=== PATIENT | female | born 1985 | race Two or more races ===

== ENCOUNTER 2024-08-21 16:40 | Inpatient (IN) | payer MEDICAID, SELFPAY ==
[2024-08-21 17:14] VITALS: BP 167/84; PULSE 75; RESP 18; TEMP 36.9; O2SAT 97; BMI 35.9
--- NOTE | 2024-08-21 17:35 | PD.EDRME ---
Rapid Medical Screening Exam RME Arrival date/time: 08/21/24 16:40 This is a 39-year-old female that comes in with complaints of nausea, vomiting and abdominal pain that started today. I have greeted and performed a focused initial assessment of this patient. Initial appropriate labs ordered at this time. A comprehensive ED assessment and evaluation of the patient and analysis of all test and completion of medical decision making process will be conducted by additional ED provider. Chief Complaint: Abdominal Pain Time Seen by Provider: 08/21/24 16:43 Vital signs: Vital Signs Temperature 98.5 F 08/21/24 17:14 Pulse Rate 75 08/21/24 17:14 Respiratory Rate 18 08/21/24 17:14 Blood Pressure 167/84 H 08/21/24 17:14 Pulse Oximetry (%) 97 08/21/24 17:14 Oxygen Delivery Method Room Air 08/21/24 17:14
[2024-08-21] MEDS: ONDANSETRON ODT 4 MG TABRAP PO (17:42)
[2024-08-21 18:20] LABS: Basophils # (Auto) 0.1 Thou/mm3 (0.0-0.2); Basophils % (Auto) 1 % (0-2.5); Eosinophils # (Auto) 0.3 Thou/mm3 (0.0-0.5); Eosinophils % (Auto) 4 % (0-10); Hematocrit 35.2 % (36.0-46.0); Hemoglobin 11.7 g/dL (12.0-16.0); Immature Granulocytes % (Auto) 0 % (0-0); Immature Granulocytes Auto 0.01 Thou/mm3 (0.00-0.00); Lymphocytes # (Auto) 1.8 Thou/mm3 (1.0-4.8); Lymphocytes % (Auto) 21 % (10-50); Mean Corpuscular HGB Conc 33.2 g/dl (31.0-37.0); Mean Corpuscular Hemoglobin 28.9 pg (25.0-35.0); Mean Corpuscular Volume 87 fL (80-100); Monocytes # (Auto) 0.8 Thou/mm3 (0.0-0.8); Monocytes % (Auto) 9 % (0-12); Neutrophils # (Auto) 5.8 Thou/mm3 (1.8-7.7); Neutrophils % (Auto) 66 % (37-80); Nucleated Red Blood Cell % 0 /100 WBC (0); Platelet Count 270 Thou/mm3 (140-440); RDW Standard Deviation 51.6 fL (36.4-46.3); Red Blood Count 4.05 Miln/mm3 (4.00-5.20); White Blood Count 8.7 Thou/mm3 (3.6-11.0)
[2024-08-21 18:26] LABS: Collection Type, Urine Voided
[2024-08-21 18:36] LABS: Alanine Aminotransferase 41 U/L (10-49); Albumin, Serum 4.6 gm/dL (3.5-5.0); Albumin/Globulin Ratio 1.5 (1.2-2.2); Alkaline Phosphatase 87 U/L (46-116); Anion Gap 9 (7-16); Aspartate Amino Transferase 39 U/L (0-34); BUN/Creatinine Ratio 17 Ratio (12-20); Bilirubin,Total 0.9 mg/dL (0.3-1.2); Blood Urea Nitrogen 10 mg/dL (9-23); Calcium 9.2 mg/dL (8.3-10.6); Calcium (Corrected) 9.2 mg/dL (8.5-10.1); Carbon Dioxide 22.3 mMol/L (20.0-31.0); Chloride 105 mMol/L (98-107); Creatinine (Component) 0.6 mg/dL (0.6-1.3); Estimated Creatinine Clearance 129.3 mL/min (>60); Glucose 106 mg/dL (74-106); Lipase 40 U/L (12-53); Osmolality,Calculated 270 (275-295); Potassium 3.7 mMol/L (3.4-5.1); Sodium 136 mMol/L (136-145); Total Protein 7.6 gm/dL (5.7-8.2); eGFR > 60 See Note
[2024-08-21 18:36] LABS: HCG Qualitative,Urine Negative
[2024-08-21 18:43] LABS: Bilirubin,Urine Negative (Negative); Blood,Urine Negative (Negative); Clarity,Urine Clear (Clear/Hazy); Color,Urine Yellow (Lt Yel-Yel); Glucose, Urine Negative (Negative); Ketones,Urine 2+ (Negative); Leukocyte Esterase,Urine Positive (Negative); Nitrite,Urine Negative (Negative); PH,Urine 5.5 (5.0-7.0); Protein,Urine Trace (Neg - Trace); RBC,Urine 6 /hpf (0-3); Specific Gravity,Urine 1.035 (1.001-1.035); Squamous Epithelial Cell,Urine 4 /hpf (0-5); Urobilinogen,Urine Negative mg/dL (0.0-1.0); WBC,Urine 34 /hpf (0-5)
[2024-08-21 18:45] LABS: Culture Indicated,Urine Yes
[2024-08-21 19:53] VITALS: BP 141/72; PULSE 84; RESP 17; TEMP 37.1; O2SAT 99
--- NOTE | 2024-08-21 20:08 | EDNOTE_ITS ---
<Statement entered by Stephanie Pichardo MD - 08/22/24 04:25> As co-signing physician, I was present and available for consult prn. I concur with the plan and care as documented by the midlevel provider. ED Abdominal Pain RME/HPI General Chief Complaint: Abdominal Pain Stated complaint: ABD PAIN/BACK PAIN/HTN Time seen by provider: 08/21/24 16:43 Arrival date/time: 08/21/24 16:40 RME / HPI RME / HPI narrative: 39-year-old female patient with significant medical history of hypertension, came in for evaluation regarding epigastric pain onset of symptoms since 3 to 4 hours prior to ER visit described as crampy severity moderate associated with nausea vomiting. No fever noted denies any other complaints. Denies any abdominal surgery. Related Data Previous Rx's ?Medication ?Instructions ?Recorded Docusate Sodium 100 mg PO BID #60 caps 04/13 ibuprofen 400 mg tablet 800 mg (2 x 400 mg) PO Q8HR PRN 04/13/13 ABDOMINAL CRAMPING #30 caps Allergies Allergy/AdvReac Type Severity Reaction Status Date / Time No Known Allergies Allergy Verified 08/21/24 16:42 Review of Systems Review of Systems Narrative Review of Systems: Review of system reviewed and within normal limits except mentioned in HPI ED Exam Narrative Physical exam: VITAL SIGNS: Reviewed. GENERAL APPEARANCE: Alert and interactive, follows commands, no acute distress, HEAD AND FACE: Non-traumatic. ENT: PERRL, pink conjunctivitis, eyelid no trauma, Mucous membrane moist. NECK: Supple, nontender, no nuchal rigidity. CHEST: No tenderness, no crepitus, no paradoxical movement, no retractions. LUNGS: Clear, well ventilated, symmetric, no rales, no wheezing, no ronchi, no stridor, good breath sounds bilaterally. HEART: Regular rate, regular rhythm, no murmur, no gallops. ABDOMEN: Soft, positive bowel sounds, nondistended, no guarding, epigastric tenderness, no rebound, no masses, RECTAL: Deferred. GENITAL: Deferred. NEUROLOGICAL: Gross motor function intact sensory function intact, Appropriate for age. MUSCULOSKELETAL: low back nontender, full range of motion. EXTREMITIES: Nontender, full range of motion. SKIN: Color pink, dry, no rash, no lacerations, no abrasions, no contusions. LYMPHATICS: Deferred. Course Quality Measures none Orders Category Date Time Status COVID-19 Screening Questionnaire NOW Care 08/21/24 21:41 Active Decision to Admit X1 Care 08/21/24 21:41 Active NPO after Midnight ONCE Care 08/21/24 21:41 Active Diet NPO after Midnight Diet 08/22/24 00:01 Active US gall bladder Stat Exams 08/21/24 20:17 Completed CBC Stat Lab 08/21/24 18:09 Completed Comprehensive Metabolic Panel Stat Lab 08/21/24 18:09 Completed HCG Qualitative,Urine Stat Lab 08/21/24 18:20 Completed Lipase Stat Lab 08/21/24 18:09 Completed Urinalysis, C/S if Indicated Stat Lab 08/21/24 18:20 Completed Urine Culture Stat Lab 08/21/24 18:20 Received Cefoxitin [Mefoxin] 2 gm Med 08/21/24 21:36 Active SODIUM CHLORIDE 0.9% (Popper) [Ns 0.9% (P)] 50 ml IV X1 Ketorolac Inj [Toradol Inj] Med 08/21/24 20:08 Discontinued 30 mg IM X1 ONE Morphine Inj Med 08/21/24 21:36 Discontinued 4 mg IVP X1 ONE Ondansetron Odt [Zofran Odt] Med 08/21/24 17:35 Discontinued 4 mg PO X1 ONE Sodium Chloride 0.9% 1000 ml [Ns] 1,000 ml Med 08/21/24 21:37 Active IV 999 mls/hr Vital Signs Vital signs: Vital Signs Temperature 98.5 F 08/21/24 17:14 Pulse Rate 75 08/21/24 17:14 Respiratory Rate 18 08/21/24 17:14 Blood Pressure 167/84 H 08/21/24 17:14 Pulse Oximetry (%) 97 08/21/24 17:14 Oxygen Delivery Method Room Air 08/21/24 17:14 Abdominal Pain MDM MDM Narrative MDM Narrative:: 39-year-old female patient with significant medical history of hypertension, came in for evaluation regarding epigastric pain onset of symptoms since 3 to 4 hours prior to ER visit described as crampy severity moderate associated with nausea vomiting. No fever noted denies any other complaints. Denies any abdominal surgery. Ultrasound of the gallbladder showed acute calculus cholecystitis. Laboratory workup came back unremarkable total bili is normal Patient received IV fluids, morphine, Toradol, Zofran, and IV cefoxitin. Spoke with general surgeon on-call, who told me to put the patient on n.p.o. and asked the hospitalist admit thank you DrMario Patient data External records reviewed:: None Clinical information provided by:: patient Social determinants that could affect healthcare access:: none Patient has the following chronic illnesses:: Hypertension How is presenting disease/condition affected by chronic disease/condition?: uneffected by Evaluation data The following diagnostics were reviewed and interpreted by me:: lab results and radiology exam(s) Lab and/or radiology exams considered but not ordered:: None Interpretation Summary: See results MDM Medications / Prescriptions Medications or Prescriptions considered but not ordered:: None Medication administrations:: Medication Administration History Cefoxitin Sodium 2 gm/ Sodium (Chloride) 50 mls @ 100 mls/hr IV X1 ONE Stop: 08/21/24 22:05 Sodium Chloride (Ns) 1,000 mls @ 999 mls/hr IV .Q1H1M ONE Stop: 08/21/24 22:37 Discontinued Medications Ketorolac Tromethamine (Ketorolac Inj 60 Mg/2 Ml Vial) 30 mg IM X1 ONE Stop: 08/21/24 20:09 Last Admin: 08/21/24 20:18 Dose: 30 mg Documented By: OA Morphine Sulfate (Morphine Sulf Inj 10 Mg/Ml Vial) 4 mg IVP X1 ONE Stop: 08/21/24 21:37 Ondansetron HCl (Ondansetron Odt 4 Mg Tabrap) 4 mg PO X1 ONE; Protocol Stop: 08/21/24 17:36 Last Admin: 08/21/24 17:42 Dose: 4 mg Documented By: OA Morphine Zofran Toradol cefoxitin and IV fluid Consultations Consultation(s) initiated? (list below): Yes Consultation #1 (Physician, Specialty, Details): Spoke with Dr. Harrell, general surgeon on-call, discussed the case and accepted the consult Diagnosis Differential diagnosis abdominal pain: abdominal pain and pancreatitis Most likely diagnosis given after review of the tests above:: Acute calculus cholecystitis Admission Indicated Admission indicated?: indicated Admission Request Was there a request for admission?: Yes Admission Attestation Admission request attestation: Discussed case with [Dr. Castro] from Hospitalist service regarding admission. Discussed patients ED course, exam findings, labs, and radiology results. The Hospitalist [agrees] to accept the patient for admission. Disposition Plan Disposition Plan: Admit Discharge Plan Plan Patient Disposition: Admit Acute Care w/in Hospital Prescriptions/Referrals Prescriptions/Med Rec: No Action ibuprofen 400 MG tablet 800 mg PO Q8HR PRN (Reason: ABDOMINAL CRAMPING) Qty: 30 0RF Docusate Sodium 100 MG tablet 100 mg PO BID Qty: 60 0RF Referrals: No Primary/Family,Physician [Primary Care Provider] - In 1 week Problem List Clinical Impression: Acute calculous cholecystitis, HTN (hypertension) Patient/Caregiver Discharge Instructions Print Language: Turkish Stand Alone Forms: Dianne Award Info., Patient Portal Info Letter
--- NOTE | 2024-08-21 20:17 | XR_ITS ---
Examination: Abdomen sonogram, Limited Date and time of exam: August 21, 2024, 2032 hours INDICATIONS: Onset of epigastric pain nausea vomiting beginning today Technique: Real-time echavarria scale transabdominal sonographic images of the upper abdomen obtained. Findings: Gallbladder sludge, gallstones, the largest gallstone 29 mm Gallbladder wall 0.38 cm with mild edema Common bile duct 0.3 cm Pancreatic head 2.8 cm Liver 13.4 cm fatty infiltration lobular contour Normal hepatopedal portal venous flow Patent IVC IMPRESSION: Acute calculus cholecystitis pattern, consider HIDA scan or MRCP follow-up
[2024-08-21] MEDS: KETOROLAC INJ 60 MG/2 ML VIAL 30 MG IM (20:18)
[2024-08-21 21:55] VITALS: BP 140/86; PULSE 85; RESP 18; TEMP 36.9; O2SAT 100
[2024-08-21] MEDS: CEFOXITIN 2 GM in SODIUM CHLORIDE 0.9% (Popper) 50 ML IV (21:58)
[2024-08-21] MEDS: SODIUM CHLORIDE 0.9% 1000 ML 1,000 ML 999 ML IV (21:58)
[2024-08-21] MEDS: MORPHINE SULF INJ 10 MG/ML VIAL 4 MG IVP (21:59)
[2024-08-21] MEDS: HEPARIN SOD INJ 5000 UNIT/ML VIAL SC (23:40)
--- NOTE | 2024-08-21 23:40 | ESHP_ITS ---
Documentation for date of: 08/21/24 HPI History of Present Illness Chief complaint: Abdominal pain History of present illness: Ms. De La Cruz is a 39-year-old female with no significant past medical history who presented to [facility] emergency department on 08/21/2024 with a chief complaint of epigastric pain. Patient reported that her symptoms started about 3 to 4 hours earlier today, complains of pain describes pain as crampy, severe 10/10 associated with nausea and vomiting. Patient reported that her symptoms got worse after meal, denies any right upper quadrant pain, denies any previous history of similar symptoms in the past. Patient otherwise has no current complaints, reported that she does not take any medications at home and attributes her high blood pressure to pain. Patient denies any chest pain, palpitations, shortness of breath and headache. ED Course: ED Vitals: On presentation blood pressure 167/84, pulse 75, respiratory rate 18, temp 98.5, O2 sat 97 on room air ED Labs: ED labs significant for hemoglobin 11.7, hematocrit 35.2, osmolality 270, AST 39. Urine analysis shows urine ketones 2+, RBC 6, leukocyte esterase positive, WBC 34, bacteria none ED Imaging:Gallbladder ultrasound shows acute calculus cholecystitis pattern, CBD 0.3 cm ED Treatment:Patient got Zofran 4 mg p.o. x 1, Toradol 30 mg IM x 1, cefoxitin 2 g x 1, 1 L NS bolus and morphine 4 mg IV push x 1 in ED Review of Systems Review of Systems Narrative Review of Systems: ROS: -CONSTITUTIONAL: Denies weight loss, fever and chills. -HEENT: Denies changes in vision and hearing. -RESPIRATORY: Denies SOB and cough. -CV: Denies palpitations and Chest Pain. -GI: Positive for abdominal pain, nausea, vomiting, denies constipation and diarrhea. -: Denies dysuria and urinary frequency. -MSK: Denies myalgia and joint pain. -SKIN: Denies rash and pruritus. -NEUROLOGICAL: Denies headache and syncope. -PSYCHIATRIC: Denies recent changes in mood. Denies anxiety and depression. 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 Conversational and non-toxic appearing. HEENT: Normocephalic, atraumatic, mucous membranes moist. Heart: Regular rate and rhythm, no murmurs. Lungs: Clear to auscultation with no wheezing or crackles. Abdomen: Soft, nondistended, epigastric tenderness, positive bowel sounds. ?No guarding or rebound tenderness. Lehman sign negative. Neurologic: Alert and oriented x3, no gross neurological deficit, and patient able to move all 4 extremities. Extremities: No edema. Skin: No rash or ecchymoses. Results: Labs 08/21/24 18:09 08/21/24 18:09 Labs: Short CBC 08/21/24 Range/Units 18:09 WBC 8.7 (3.6-11.0) Thou/mm3 Hgb 11.7 L (12.0-16.0) g/dL Hct 35.2 L (36.0-46.0) % Plt Count 270 (140-440) Thou/mm3 BMP 08/21/24 18:09 Sodium 136 Potassium 3.7 Chloride 105 Carbon Dioxide 22.3 BUN 10 Creatinine 0.6 Glucose 106 Calcium 9.2 Liver Function 08/21/24 Range/Units 18:09 Total Bilirubin 0.9 (0.3-1.2) mg/dL AST 39 H (0-34) U/L ALT 41 (10-49) U/L Alkaline Phosphatase 87 (46-116) U/L Albumin 4.6 (3.5-5.0) gm/dL Urine 08/21/24 Range/Units 18:20 Urine Color Yellow (Lt Yel-Yel) Urine Clarity Clear (Clear/Hazy) Urine pH 5.5 (5.0-7.0) Ur Specific [place] 1.035 (1.001-1.035) Urine Protein Trace (Neg - Trace) Urine Glucose (UA) Negative (Negative) Quality Measures Quality Measures none Medications Home Medications and Allergies Allergies Allergy/AdvReac Type Severity Reaction Status Date / Time No Known Allergies Allergy Verified 08/21/24 16:42 Visit Medications Acetaminophen (Acetaminophen 325 Mg Tablet) 650 mg PO Q6H PRN PRN Reason: Pain (1-3) & Fever >101.5 Stop: 09/20/24 22:40 Hydrocodone Bitart/Acetaminophen (Hydrocodone/Apap 5/325 Tablet) 1 tab PO Q4HR PRN PRN Reason: PAIN SCALE 4-6 (Moderate Stop: 08/26/24 22:40 Heparin Sodium (Porcine) (Heparin Sod Inj 5000 Unit/Ml Vial) 5,000 unit SC Q12H [facility] Stop: 09/04/24 22:44 Last Admin: 08/21/24 23:40 Dose: 5,000 unit Piperacillin Sod/Tazobactam (Sod 3.375 gm/ Sodium Chloride) 50 mls @ 12.5 mls/hr IV Q8HR [facility]; Protocol Stop: 08/29/24 05:59 Morphine Sulfate (Morphine Sulf Inj 10 Mg/Ml Vial) 2 mg IVP Q6H PRN PRN Reason: PAIN SCALE 7-10 (Severe Stop: 08/26/24 22:40 Ondansetron HCl (Ondansetron Inj 2 Mg/Ml Inj 2 Ml) 4 mg IV Q6H PRN; Protocol PRN Reason: NAUSEA OR VOMITING Stop: 09/20/24 22:40 Pantoprazole Sodium (Pantoprazole Inj 40 Mg Vial) 40 mg IVP QDAY [facility] Stop: 09/21/24 08:59 Discontinued Medications Cefoxitin Sodium 2 gm/ Sodium (Chloride) 50 mls @ 100 mls/hr IV X1 ONE Stop: 08/21/24 22:05 Last Admin: 08/21/24 21:58 Dose: 100 mls/hr Sodium Chloride (Ns) 1,000 mls @ 999 mls/hr IV .Q1H1M ONE Stop: 08/21/24 22:37 Last Admin: 08/21/24 21:58 Dose: 999 mls/hr Piperacillin Sod/Tazobactam (Sod 3.375 gm/ Sodium Chloride) 50 mls @ 100 mls/hr IV X1 ONE Stop: 08/21/24 23:29 Ketorolac Tromethamine (Ketorolac Inj 60 Mg/2 Ml Vial) 30 mg IM X1 ONE Stop: 08/21/24 20:09 Last Admin: 08/21/24 20:18 Dose: 30 mg Morphine Sulfate (Morphine Sulf Inj 10 Mg/Ml Vial) 4 mg IVP X1 ONE Stop: 08/21/24 21:37 Last Admin: 08/21/24 21:59 Dose: 4 mg Ondansetron HCl (Ondansetron Odt 4 Mg Tabrap) 4 mg PO X1 ONE; Protocol Stop: 08/21/24 17:36 Last Admin: 08/21/24 17:42 Dose: 4 mg Assessment & Plan Plan Assessment and plan: Summary: Ms. De La Cruz is a 39-year-old female with no significant past medical history who presented to [facility] emergency department on 08/21/2024 with a chief complaint of epigastric pain. Patient reported that her symptoms started about 3 to 4 hours earlier today, complains of pain describes pain as crampy, severe 10/10 associated with nausea and vomiting. #Acute calculus cholecystitis #Abdominal pain #Transaminitis Patient presented with epigastric/abdominal pain since earlier today, gallbladder ultrasound shows acute calculus cholecystitis patent. General surgery consulted in ED recommended admission for cholecystectomy. Patient got Zofran 4 mg p.o. x 1, Toradol 30 mg IM x 1, cefoxitin 2 g x 1, 1 L NS bolus and morphine 4 mg IV push x 1 in ED Plan: - IV Zosyn (08/21- - General Surgery consulted, appreciate recommendations - N.p.o. - Pain management - IV Protonix daily #Normocytic normochromic anemia Hemoglobin 11.7, hematocrit 35.2, MCV 87, MCH 28.9, MCHC 33.2 - Follow CBC in a.m. - Follow iron panel/B12 in a.m. DVT prophylaxis: Heparin every 12 hours GI prophylaxis: IV Protonix Diet: N.p.o. Lines: Peripheral IV Code status: Full code Case discussed with Attending Dr. Sheth. Smitha Castro PGY1 Disclaimer: This note was dictated by speech recognition. Minor errors in human resources vice president may be present due to voice recognition software. Attending Provider Attestation/Addendum I have examined the patient, reviewed labs and imaging findings, discussed the case with the resident(s), and reviewed entered orders. I agree with the plan of care as outlined in this note, with these additional summaries/recommendations: 39-year-old obese female with no known past medical history presents to the ED with chief complaint of intractable epigastric abdominal pain that has been ongoing and worsening for the last 2 weeks. She reports an episode today with intense sweating, epigastric abdominal pain and nausea and vomiting that have been intractable. Ultrasound in the ER showed acute calculus cholecystitis, case discussed with surgery who recommended admission for further management. Will admit for further management of intractable nausea vomiting likely secondary to acute cholecystitis. Felipe Sheth MD
[2024-08-21] MEDS: PIPER/TAZO INJ 3.375 GM in SODIUM CHLORIDE 0.9% (Popper) 50 ML IV (23:45)
[2024-08-22] VITALS (17 sets, daily range): BP systolic 110–152; BP diastolic 69–98; PULSE 62–97; RESP 14–98; TEMP 36.1–37.1; O2SAT 96–100; BMI 36.3
[2024-08-22] MEDS: HYDROcodone/APAP 5/325 TABLET 1 TAB PO ×2 (03:16→08:42)
[2024-08-22] MEDS: ONDANSETRON INJ 2 MG/ML INJ 2 ML 4 MG IV (03:17)
[2024-08-22] MEDS: PIPER/TAZO INJ 3.375 GM in SODIUM CHLORIDE 0.9% (Popper) 50 ML IV (05:56)
[2024-08-22 06:59] LABS: Basophils % (Auto) 1 % (0-2.5); Eosinophils # (Auto) 0.2 Thou/mm3 (0.0-0.5); Eosinophils % (Auto) 3 % (0-10); Hematocrit 32.8 % (36.0-46.0); Hemoglobin 10.6 g/dL (12.0-16.0); Immature Granulocytes % (Auto) 0 % (0-0); Immature Granulocytes Auto 0.02 Thou/mm3 (0.00-0.00); Lymphocytes % (Auto) 31 % (10-50); Mean Corpuscular HGB Conc 32.3 g/dl (31.0-37.0); Mean Corpuscular Hemoglobin 28.6 pg (25.0-35.0); Mean Corpuscular Volume 89 fL (80-100); Monocytes # (Auto) 0.7 Thou/mm3 (0.0-0.8); Monocytes % (Auto) 11 % (0-12); Neutrophils # (Auto) 3.5 Thou/mm3 (1.8-7.7); Neutrophils % (Auto) 55 % (37-80); Nucleated Red Blood Cell % 0 /100 WBC (0); Platelet Count 221 Thou/mm3 (140-440); White Blood Count 6.4 Thou/mm3 (3.6-11.0)
[2024-08-22 07:40] LABS: Ferritin 26 ng/mL (7.3-270.7); Iron 85 mcg/dL (50-170); Percent Iron Saturation 22 % (20-55); Total Iron Binding Capacity 371 mcg/dL (250-425); Unsaturated Iron Binding 286 (225-295)
[2024-08-22 07:42] LABS: Alanine Aminotransferase 36 U/L (10-49); Albumin/Globulin Ratio 1.7 (1.2-2.2); Alkaline Phosphatase 77 U/L (46-116); Anion Gap 10 (7-16); Aspartate Amino Transferase 37 U/L (0-34); BUN/Creatinine Ratio 20 Ratio (12-20); Bilirubin,Total 1.1 mg/dL (0.3-1.2); Blood Urea Nitrogen 10 mg/dL (9-23); Calcium 8.1 mg/dL (8.3-10.6); Calcium (Corrected) 8.1 mg/dL (8.5-10.1); Carbon Dioxide 22.2 mMol/L (20.0-31.0); Cardiac Risk Estimate 2.9 RATIO (3.7-5.6); Chloride 110 mMol/L (98-107); Cholesterol 153 mg/dL (132-200); Creatinine (Component) 0.5 mg/dL (0.6-1.3); Estimated Creatinine Clearance 156.2 mL/min (>60); Globulin 2.4 gm/dL (2.3-3.5); Glucose 85 mg/dL (74-106); HDL Cholesterol 53 mg/dL (40-60); LDL Cholesterol,Calculated 69 mg/dL (0-130); Osmolality,Calculated 281 (275-295); Phosphorous 2.6 mg/dL (2.4-5.1); Potassium 3.3 mMol/L (3.4-5.1); Sodium 142 mMol/L (136-145); Total Protein 6.4 gm/dL (5.7-8.2); Triglycerides 155 mg/dL (30-150); eGFR > 60 See Note
[2024-08-22] MEDS: PANTOPRAZOLE INJ 40 MG VIAL IVP (08:17)
[2024-08-22] MEDS: POTASSIUM CHL 10 mEq IVPB 10 MEQ/100 ML BAG 100 MEQ IV ×2 (08:17→09:30)
--- NOTE | 2024-08-22 09:06 | PD.RESPRO ---
Documentation for date of: 08/22/24 Subjective Subjective Interval history: Patient was seen and examined at bedside this morning. No overnight events. Patient does state that she feels a little bit better today, but still having some epigastric pain. This morning patient's potassium was a little bit on the lower end at 3.3 therefore gave 20 mEq of potassium IV. Patient remains n.p.o. for possible surgery today by general surgery. No other complaints at this time. Exam Vital Signs Temp Pulse Resp BP Pulse Ox O2 Del Method 97.0 F 74 16 110/69 98 Room Air 08/22/24 08:00 08/22/24 08:00 08/22/24 08:00 08/22/24 08:00 08/22/24 08:00 08/22/24 04:00 Narrative Exam General: A/O x3, no acute distress, well-nourished, well-developed Eyes: PERRL, EOMI. Anicteric, vision grossly intact. Ears: No ear pain, no ear discharge, Hearing grossly intact. Nose: No nasal discharge. Mouth/Throat: Moist mucous membranes, no redness, no lesions. Neck: Neck supple, non-tender, no cervical lymphadenopathy. Lungs: Clear SULMA to auscultation and percussion, No accessory muscle use. Cardio: Normal S1/S2, regular rhythm, no murmurs, no JVD or carotid bruits. Abdomen: Soft, mild tenderness in epigastric region, no palpable masses, peristalsis present, no guarding or rebound. Extremities: Symmetrical, no significant deformities, no peripheral edema , non-tender, peripheral pulses presents. Skin: No rashes, no lesions, warm to touch. Neuro: No focal neurological deficits. motor and sensory intact. Psych: Cooperative, appropriate mood and effect. Objective Labs 08/23/24 05:47 08/23/24 05:47 Labs: Laboratory Results - last 24 hr 08/21/24 08/21/24 08/22/24 18:09 18:20 05:48 WBC 8.7 6.4 RBC 4.05 3.70 L Hgb 11.7 L 10.6 L Hct 35.2 L 32.8 L MCV 87 89 MCH 28.9 28.6 MCHC 33.2 32.3 RDW Std Deviation 51.6 H 53.0 H Plt Count 270 221 D Neut % (Auto) 66 55 Lymph % (Auto) 21 31 [place] % (Auto) 9 11 Eos % (Auto) 4 3 Baso % (Auto) 1 1 Neut # (Auto) 5.8 3.5 Lymph # (Auto) 1.8 2.0 [place] # (Auto) 0.8 0.7 Eos # (Auto) 0.3 0.2 Baso # (Auto) 0.1 0.0 Immature Gran # (Auto) 0.01 H 0.02 H Absolute Nucleated RBC 0.00 0.00 Immature Gran % 0 0 Nucleated RBC % 0 0 Sodium 136 142 Potassium 3.7 3.3 L Chloride 105 110 H Carbon Dioxide 22.3 22.2 Anion Gap 9 10 BUN 10 10 Creatinine 0.6 0.5 L Estim Creat Clear Calc 129.3 156.2 eGFR > 60 > 60 BUN/Creatinine Ratio 17 20 Glucose 106 85 Calculated Osmolality 270 L 281 Calcium 9.2 8.1 L Corrected Calcium 9.2 8.1 L Phosphorus 2.6 Magnesium 2.0 Iron 85 TIBC 371 Iron Saturation 22 Unsat Iron Binding 286 Ferritin 26 Total Bilirubin 0.9 1.1 AST 39 H 37 H ALT 41 36 Alkaline Phosphatase 87 77 Total Protein 7.6 6.4 Albumin 4.6 4.0 D Globulin 3.0 2.4 Albumin/Globulin Ratio 1.5 1.7 Triglycerides 155 H Cholesterol 153 LDL Cholesterol, Calc 69 HDL Cholesterol 53 Cholesterol/HDL Ratio 2.9 L Lipase 40 Ur Collection Type Voided Urine Color Yellow Urine Clarity Clear Urine pH 5.5 Ur Specific [place] 1.035 Urine Protein Trace Urine Glucose (UA) Negative Urine Ketones 2+ A Urine Blood Negative Urine Nitrite Negative Urine Bilirubin Negative Urine Urobilinogen (Auto) Negative Ur Leukocyte Esterase Positive Urine RBC 6 H Urine WBC 34 H Ur Squamous Epith Cells 4 Urine Bacteria None Ur Culture Indicated? Yes Urine HCG, Qual Negative Quality Measures Quality Measures none Assessment & Plan Assessment Current Active Medications: Generic Name Dose Route Start Last Admin Trade Name Freq PRN Reason Stop Dose Admin Acetaminophen 650 mg 08/21/24 22:41 Acetaminophen 325 Mg Tablet PO 09/20/24 22:40 Q6H PRN Pain (1-3) & Fever >101.5 Hydrocodone Bitart/Acetaminophen 1 tab 08/21/24 22:41 08/22/24 08:42 Hydrocodone/Apap 5/325 Tablet PO 08/26/24 22:40 1 tab Q4HR PRN Administration PAIN SCALE 4-6 (Moderate Heparin Sodium (Porcine) 5,000 unit 08/21/24 22:45 08/22/24 08:10 Heparin Sod Inj 5000 Unit/Ml Vial SC 09/04/24 22:44 Not Given Q12H EDE Piperacillin/Tazobactam/Dextrose 3.375 gm in 50 mls @ 12.5 mls/hr 08/22/24 06:30 08/22/24 06:32 Zosyn IV 08/29/24 06:29 Not Given Q8HR DEE Protocol Potassium Chloride 10 meq in 100 mls @ 100 mls/hr 08/22/24 07:51 08/22/24 08:17 Kcl Ivpb IV 08/22/24 09:50 100 mls/hr Q1H DEE Administration Morphine Sulfate 2 mg 08/21/24 22:41 Morphine Sulf Inj 10 Mg/Ml Vial IVP 08/26/24 22:40 Q6H PRN PAIN SCALE 7-10 (Severe Ondansetron HCl 4 mg 08/21/24 22:41 08/22/24 03:17 Ondansetron Inj 2 Mg/Ml Inj 2 Ml IV 09/20/24 22:40 4 mg Q6H PRN Administration NAUSEA OR VOMITING Protocol Pantoprazole Sodium 40 mg 08/22/24 09:00 08/22/24 08:17 Pantoprazole Inj 40 Mg Vial IVP 09/21/24 08:59 40 mg QDAY DEE Administration Plan 39-year-old female with no significant past medical history was admitted to the hospital on 08/21/2024 due to acute calculus cholecystitis. #Acute calculus cholecystitis #Abdominal pain #Transaminitis Patient came into the ED with complaints of epigastric abdominal pain since earlier on the day of admission Gallbladder ultrasound showed acute calculus cholecystitis and normal CBD. Initially AST was elevated to 39 and this morning was 37 Plan: Will continue with Zosyn (08/21/2024?) Patient to remain n.p.o. for possible surgery Pain management as needed Protonix General Surgery on board, appreciate recommendations #Normocytic normochromic anemia Patient came in with a hemoglobin of 11.7 This morning hemoglobin was 10.6 Most likely hemodilution No active signs of bleeding Plan: Will continue to monitor and transfuse hemoglobin less than 7 #Hypokalemia Patient's potassium this morning was 3.3 Plan: 20 mEq of potassium IV Will continue to monitor Disposition: Patient admitted for calculus cholecystitis pending surgery. . Diet: NPO GI prophylaxis: protonix DVT prophylaxis: heparin subcu (hold am due to procedure) Code: Full Case disclosed with Attending Dr. Kerry Mcgill PGY1 Attending Provider Attestation/Addendum I reviewed labs, imaging, EKG, home medications and prior available records. Face to face evaluation was performed by me. I have personally examined the patient and discussed assessment and plan with the IM team. I reviewed the resident note and agree with the plan with exceptions as below. Acute calculus cholecystitis Hypokalemia Transaminitis Continue IV Zosyn Consulted surgery: Plan for laparoscopic cholecystectomy on 08/22 Management of nausea/vomiting as needed Management of pain as needed Replete potassium as needed and monitor BMP
--- NOTE | 2024-08-22 09:32 | ESCONSULT_ITS ---
HPI Consult details Consult date: 08/21/24 Reason for consultation narrative: Right upper quadrant abdominal pain with nausea and vomiting History of present illness: 39-year-old female presented to the emergency department with worsening a bdominal pain. She has had 1 week history of intermittent abdominal pain. For the past 2 days her pain has become persistent and progressively worse. Her pain is localized in the epigastric and right upper quadrant radiating to her back and associated with multiple episodes of nausea and vomiting. She has not been able to eat or tolerate any food. She denies fever, chills, jaundice, discoloration of urine or stool. Her liver enzymes are unremarkable. Ultrasound showed multiple gallstones with minimal gallbladder wall thickening and edema. Review of Systems Constitutional Constitutional: Denies chills and Denies fever(s) Cardiovascular Cardiovascular: Denies chest pain Respiratory Respiratory: Denies cough Gastrointestinal Gastrointestinal: Reports abdominal pain, Reports nausea and Reports vomiting Genitourinary Genitourinary: Denies difficulty voiding Hematologic/Lymphatic Hematologic/Lymphatic: Denies easy bleeding and Denies easy bruising Past Medical History Surgical History OTHER SURGICAL HX: Appendectomy, abdominoplasty Social History SMOKING STATUS: Never smoker SUBSTANCE USE: does not use ALCOHOL: Current (Social drinker) Meds Home Medications and Allergies Allergies Allergy/AdvReac Type Severity Reaction Status Date / Time No Known Allergies Allergy Verified 08/21/24 16:42 Exam Vital Signs Temp Pulse Resp BP Pulse Ox O2 Del Method 97.0 F 74 16 110/69 98 Room Air 08/22/24 08:00 08/22/24 08:00 08/22/24 08:00 08/22/24 08:00 08/22/24 08:00 08/22/24 04:00 Constitutional Constitutional: no acute distress Routine HEENT Exam Eye: Present PERRL (Anicteric sclera) Routine Abdominal Exam Abdominal: Present soft, normoactive bowel sounds and tenderness (Right upper quadrant tenderness to palpation with guarding, no rebound tenderness or peritonitis at this time); Absent distended Results Results: Laboratory Laboratory results: results reviewed Results: Imaging US - abdomen: report reviewed and image reviewed Assessment & Plan Problem List (1) Acute calculous cholecystitis: Status: Acute Plan Will keep patient n.p.o. with IV fluids and IV antibiotics and plan for laparoscopic possible open cholecystectomy. Risks include but not limited to infection, bleeding, injury to bowel, liver, stomach, bile duct, retained stone, bile leak, abdominal sepsis and or abdominal abscess, need for further procedure and or operation discussed with the patient. Benefits and alternatives explained to her, all her questions answered, she agreed and consented to proceed with the operation.
--- NOTE | 2024-08-22 11:48 | PC.SS ---
This is 39-year-old, single, female who presented to the ED for abdominal pain. Patient appeared alert and oriented to self, place and situation. Patient was pleasant. Patient reported that she resides at home with her children. Patient's children are under the care of her boyfriend, Gennaro Bee ([phone]). Patient is independent with all ADLs, no DME use. Patient assigned Gennaro as her medical decision maker. Patient's PCP is [facility]. When medically clear, patient will return home.
--- NOTE | 2024-08-22 12:49 | PD.SUROPNT ---
Date of Procedure 08/22/24 Pre Op Diagnosis Cholelithiasis with acute cholecystitis Post Op Diagnosis Cholelithiasis with acute cholecystitis Procedure Laparoscopic cholecystectomy Findings Distended gallbladder with gallbladder wall thickening, gallstones and extensive pericholecystic edema Procedure Description Patient was brought into the operating room in supine position. After administration of general endotracheal anesthesia abdomen was prepped and draped in standard surgical manner. A Veress needle was inserted through the umbilicus and pneumoperitoneum was obtained up to 15 mmHg. The Veress needle was then removed, a 5 mm infraumbilical incision was made and the 5mm trocar was inserted. Laparoscopic camera was placed. Under direct visualization a laparoscopic camera a 10 mm trocar was placed in subxiphoid and two 5 mm trocars placed in right upper quadrant. The gallbladder was identified and was noted to be moderately distended with gallbladder wall thickening and extensive pericholecystic edema. The gallbladder was aspirated and decompressed. It was retracted cephalad and laterally. Dissection started near the infundibulum of gallbladder where cystic duct and gallbladder junction clearly identified. The cystic duct was circumferentially dissected off the peritoneum and surrounding inflammatory tissue. The critical view of safety was clearly demonstrated. Cystic duct was then divided between 2 endoclips proximally and one distally. The cystic artery was similarly dissected and divided. The gallbladder was then from the liver bed using electrocautery. The gallbladder was then placed inside an Endo Catch and removed from the abdomen utilizing subxiphoid trocar site. The area was copiously and thoroughly washed and irrigated, all the fluid was suctioned and the suction fluid returned clear. Hemostasis achieved using electrocautery, also topical hemostatic agent using snow Surgicel placed at the gallbladder fossa to further assure hemostasis. Endoclips noted be in place and intact without any bleeding or any leakage. Hemostasis was adequate and satisfactory. The subxiphoid trocar sites fascial defect was closed with 0 Vicryl using Endo Closure device. Instruments and trocars removed, pneumoperitoneum was evacuated and the incisions closed with 4-0 Monocryl in subcuticular fashion. Instrument needle and sponge counts were all reported to be correct X2. Patient tolerated the procedure well, was extubated, breathing spontaneously and without difficulty and was transferred to postanesthesia care in stable condition. Anesthesia GETA and local Pathology / specimen Other (Gallbladder and contents) Estimated Blood Loss 50 Condition Stable Disposition PACU Surgeon Diana Harrell MD Surgical Staff Operation Date: 08/22/24 13:15 <No data on this case meets the specified criteria>
--- NOTE | 2024-08-22 13:02 | SUR.PHASEI ---
received pt and report from Dr Victoria and KIMBERLEY Burger. vss, no distress noted. Dermabond x4 to abdomen, CDI. IV intact, no s/s of infiltration or redness to site. Pt awake, a&ox3. Pt denies any pain at this time.
--- NOTE | 2024-08-22 13:02 | SUR.PHASEI ---
received report from KIMBERLEY Burger and Dr. Victoria. Pt arousable to voice. vss. IV intact no s/s of infiltration or redness to site. Dermabond dressing x4 to abd, CDI. Pt denies any pain at this timne.
[2024-08-22] MEDS: fentaNYL CIT INJ 50 mCg/ML AMP 2ML 25 MCG IV ×3 (13:30→13:55)
--- NOTE | 2024-08-22 13:40 | SUR.PHASEI ---
Pt c/o 10/28 pain, Dr. Victoria made aware of pts BP 151/93, received instruction to administer pain meds as ordered. no order for anti HTN meds at this time.
--- NOTE | 2024-08-22 13:55 | SUR.PHASEI ---
Dr. Potter informed of pt's elevated BP. Pt's HR in the 70's and pain @ 2/10. Pt does not show any s/s of any distress. No orders received. Will inform the floor RN to continue to monitor the BP
--- NOTE | 2024-08-22 14:00 | SUR.PHASEI ---
pt awake, A&ox4. Pt tolerated ice chips. pt denies any nausea. Pain @ 2/10 to abd and is tolerable. Dermabond remains CDI, IV remains intact and free of redness or infiltration. Report given to KIMBERLEY Hillman.
[2024-08-22] MEDS: ACETAMINOPHEN IVPB 1,000 MG/100 ML VIAL 250 MG IV ×3 (14:33→23:10)
[2024-08-22] MEDS: PIPER/TAZO 3.375 GM PREMIX 3.375 GM/50 ML BAG IV ×2 (14:34→21:03)
[2024-08-22] MEDS: MORPHINE SULF INJ 10 MG/ML VIAL 2 MG IVP ×2 (17:12→23:43)
[2024-08-22] MEDS: DOCUSATE SOD 100 MG CAPSULE PO (20:25)
[2024-08-22 21:43] LABS: Vitamin B12 388 pg/mL (211-911)
[2024-08-23] VITALS (8 sets, daily range): BP systolic 110–156; BP diastolic 71–90; PULSE 74–87; RESP 16–99; TEMP 36.1–36.7; O2SAT 95–99
[2024-08-23] MEDS: PIPER/TAZO 3.375 GM PREMIX 3.375 GM/50 ML BAG IV ×3 (05:46→21:10)
[2024-08-23] MEDS: MORPHINE SULF INJ 10 MG/ML VIAL 2 MG IVP ×3 (05:58→20:12)
[2024-08-23 06:44] LABS: Basophils % (Auto) 0 % (0-2.5); Eosinophils % (Auto) 0 % (0-10); Hematocrit 32.2 % (36.0-46.0); Hemoglobin 10.7 g/dL (12.0-16.0); Immature Granulocytes % (Auto) 0 % (0-0); Immature Granulocytes Auto 0.02 Thou/mm3 (0.00-0.00); Lymphocytes # (Auto) 1.2 Thou/mm3 (1.0-4.8); Lymphocytes % (Auto) 18 % (10-50); Mean Corpuscular HGB Conc 33.2 g/dl (31.0-37.0); Mean Corpuscular Hemoglobin 29.1 pg (25.0-35.0); Mean Corpuscular Volume 88 fL (80-100); Monocytes # (Auto) 0.6 Thou/mm3 (0.0-0.8); Monocytes % (Auto) 10 % (0-12); Neutrophils # (Auto) 4.5 Thou/mm3 (1.8-7.7); Neutrophils % (Auto) 71 % (37-80); Nucleated Red Blood Cell % 0 /100 WBC (0); Platelet Count 236 Thou/mm3 (140-440); RDW Standard Deviation 52.8 fL (36.4-46.3); Red Blood Count 3.68 Miln/mm3 (4.00-5.20); White Blood Count 6.4 Thou/mm3 (3.6-11.0)
[2024-08-23 07:15] LABS: Alanine Aminotransferase 208 U/L (10-49); Albumin/Globulin Ratio 1.5 (1.2-2.2); Alkaline Phosphatase 121 U/L (46-116); Anion Gap 12 (7-16); Aspartate Amino Transferase 389 U/L (0-34); BUN/Creatinine Ratio 10 Ratio (12-20); Bilirubin,Total 1.4 mg/dL (0.3-1.2); Blood Urea Nitrogen 5 mg/dL (9-23); Calcium 8.4 mg/dL (8.3-10.6); Calcium (Corrected) 8.4 mg/dL (8.5-10.1); Carbon Dioxide 21.8 mMol/L (20.0-31.0); Chloride 108 mMol/L (98-107); Creatinine (Component) 0.5 mg/dL (0.6-1.3); Estimated Creatinine Clearance 156.2 mL/min (>60); Globulin 2.6 gm/dL (2.3-3.5); Glucose 95 mg/dL (74-106); Magnesium 2.2 mg/dL (1.6-2.6); Osmolality,Calculated 280 (275-295); Phosphorous 3.7 mg/dL (2.4-5.1); Potassium 3.7 mMol/L (3.4-5.1); Sodium 142 mMol/L (136-145); Total Protein 6.6 gm/dL (5.7-8.2); eGFR > 60 See Note
--- NOTE | 2024-08-23 08:41 | PD.SURPROG ---
Documentation for date of: 08/23/24 Subjective Subjective Narrative: Pt is seen and examined. Pain is improving. She is tolerating diet well Exam Vital Signs Temp Pulse Resp BP Pulse Ox O2 Del Method O2 Flow Rate 97.0 F 74 18 122/71 98 Room Air 2 08/23/24 04:00 08/23/24 07:23 08/23/24 07:23 08/23/24 04:00 08/23/24 04:00 08/23/24 04:00 08/22/24 13:45 Constitutional Constitutional: no acute distress Routine HEENT Exam Eye: Present PERRL (Anicteric sclera) Routine Abdominal Exam Abdominal: Present soft, normoactive bowel sounds and tenderness (Epigastric incisional tenderness. Incisions are clean, dry and intact); Absent distended Assessment & Plan Assessment Additional comments: POD#1 s/p laparoscopic cholecystectomy. Plan LFTs went up. Repeat LFTs tomorrow, if trending down will discharge her home. If LFTs trending up she will require MRCP and possibly ERCP. Procedures Procedures Laparoscopic cholecystectomy
--- NOTE | 2024-08-23 09:01 | PD.RESPRO ---
Documentation for date of: 08/23/24 Subjective Subjective Interval history: Patient was seen and examined at bedside this morning. No overnight events. Patient underwent successful cholecystectomy yesterday, but today her liver enzymes did uptrend with AST at 389, ALT 208, and alkaline phosphatase at 121. Her T. bili also up trended to 1.4, but patient is not have any signs of jaundice and her abdominal pain is very mild. Otherwise patient has no new complaints and has been tolerating diet well. Will keep overnight to monitor liver enzymes tomorrow and if downtrending will discharge. Exam Vital Signs Temp Pulse Resp BP Pulse Ox O2 Del Method O2 Flow Rate 97.2 F 87 18 134/90 H 98 Room Air 2 08/23/24 08:00 08/23/24 08:00 08/23/24 08:00 08/23/24 08:00 08/23/24 08:00 08/23/24 08:00 08/22/24 13:45 Narrative Exam General: A/O x3, no acute distress, well-nourished, well-developed Eyes: PERRL, EOMI. Anicteric, vision grossly intact. Ears: No ear pain, no ear discharge, Hearing grossly intact. Nose: No nasal discharge. Mouth/Throat: Moist mucous membranes, no redness, no lesions. Neck: Neck supple, non-tender, no cervical lymphadenopathy. Lungs: Clear LENO to auscultation and percussion, No accessory muscle use. Cardio: Normal S1/S2, regular rhythm, no murmurs, no JVD or carotid bruits. Abdomen: Soft, mild tenderness in RUQ, no palpable masses, peristalsis present, no guarding or rebound. Extremities: Symmetrical, no significant deformities, no peripheral edema , non-tender, peripheral pulses presents. Skin: No rashes, no lesions, warm to touch. Neuro: No focal neurological deficits. motor and sensory intact. Psych: Cooperative, appropriate mood and effect. Objective Labs 08/23/24 05:47 08/23/24 05:47 Labs: Laboratory Results - last 24 hr 08/22/24 08/23/24 05:48 05:47 WBC 6.4 RBC 3.68 L Hgb 10.7 L Hct 32.2 L MCV 88 MCH 29.1 MCHC 33.2 RDW Std Deviation 52.8 H Plt Count 236 Neut % (Auto) 71 Lymph % (Auto) 18 [place] % (Auto) 10 Eos % (Auto) 0 Baso % (Auto) 0 Neut # (Auto) 4.5 Lymph # (Auto) 1.2 [place] # (Auto) 0.6 Eos # (Auto) 0.0 Baso # (Auto) 0.0 Immature Gran # (Auto) 0.02 H Absolute Nucleated RBC 0.00 Immature Gran % 0 Nucleated RBC % 0 Sodium 142 Potassium 3.7 Chloride 108 H Carbon Dioxide 21.8 Anion Gap 12 BUN 5 L Creatinine 0.5 L Estim Creat Clear Calc 156.2 eGFR > 60 BUN/Creatinine Ratio 10 L Glucose 95 Calculated Osmolality 280 Calcium 8.4 Corrected Calcium 8.4 L Phosphorus 3.7 Magnesium 2.2 Total Bilirubin 1.4 H AST 389 H ALT 208 H Alkaline Phosphatase 121 H D Total Protein 6.6 Albumin 4.0 Globulin 2.6 Albumin/Globulin Ratio 1.5 Vitamin B12 388 Quality Measures Quality Measures none Assessment & Plan Assessment Current Active Medications: Generic Name Dose Route Start Last Admin Trade Name Freq PRN Reason Stop Dose Admin Acetaminophen 650 mg 08/21/24 22:41 Acetaminophen 325 Mg Tablet PO 09/20/24 22:40 Q6H PRN Pain (1-3) & Fever >101.5 Hydrocodone Bitart/Acetaminophen 1 tab 08/21/24 22:41 08/22/24 08:42 Hydrocodone/Apap 5/325 Tablet PO 08/26/24 22:40 1 tab Q4HR PRN Administration PAIN SCALE 4-6 (Moderate Docusate Sodium 100 mg 08/22/24 21:00 08/22/24 20:25 Docusate Sod 100 Mg Capsule PO 09/21/24 20:59 100 mg BID DEE Administration Protocol Piperacillin/Tazobactam/Dextrose 3.375 gm in 50 mls @ 12.5 mls/hr 08/22/24 06:30 08/23/24 05:46 Zosyn IV 08/29/24 06:29 12.5 mls/hr Q8HR DEE Administration Protocol Morphine Sulfate 2 mg 08/21/24 22:41 08/23/24 05:58 Morphine Sulf Inj 10 Mg/Ml Vial IVP 08/26/24 22:40 2 mg Q6H PRN Administration PAIN SCALE 7-10 (Severe Ondansetron HCl 4 mg 08/21/24 22:41 08/22/24 03:17 Ondansetron Inj 2 Mg/Ml Inj 2 Ml IV 09/20/24 22:40 4 mg Q6H PRN Administration NAUSEA OR VOMITING Protocol Pantoprazole Sodium 40 mg 08/22/24 09:00 08/22/24 08:17 Pantoprazole Inj 40 Mg Vial IVP 09/21/24 08:59 40 mg QDAY DEE Administration Plan 39-year-old female with no significant past medical history was admitted to the hospital on 08/21/2024 due to acute calculus cholecystitis. #Acute calculus cholecystitis s/p cholecystectomy #Abdominal pain #Transaminitis #Hyperbilirubinemia Patient came into the ED with complaints of epigastric abdominal pain since earlier on the day of admission Gallbladder ultrasound showed acute calculus cholecystitis and normal CBD. Cholecystectomy 08/22/2024 Initially AST was elevated to 39 and this morning was 389 and ALT 208 with T. Leno 1.4 Plan: Will continue with Zosyn (08/21/2024?) Will monitor LFTs tomorrow if uptrend will do MRCP Pain management as needed Protonix General Surgery on board, appreciate recommendations #Normocytic normochromic anemia Patient came in with a hemoglobin of 11.7 This morning hemoglobin was 10.7 Most likely hemodilution No active signs of bleeding Plan: Will continue to monitor and transfuse hemoglobin less than 7 #Hypokalemia, resolved Disposition: Patient admitted for calculus cholecystitis s/p cholecystectomy, LFT's uptrended pending downtrend tomorrow if not will do MRCP. Diet: full liquid GI prophylaxis: protonix DVT prophylaxis: heparin subcu Code: Full Case disclosed with Attending Dr. Kerry Mcgill PGY1 Attending Provider Attestation/Addendum I reviewed labs, imaging, EKG, home medications and prior available records. Face to face evaluation was performed by me. I have personally examined the patient and discussed assessment and plan with the IM team. I reviewed the resident note and agree with the plan with exceptions as below. Acute calculus cholecystitis Hypokalemia Transaminitis, getting worse Continue IV Zosyn Consulted surgery: Status post laparoscopic cholecystectomy on 08/22 LFTs got worse. Discussed with GI: Concern for choledocholithiasis. Continue to trend LFTs and if he got worse then proceed to MRCP Management of nausea/vomiting as needed Management of pain as needed Replete potassium as needed and monitor BMP
[2024-08-23] MEDS: PANTOPRAZOLE INJ 40 MG VIAL IVP (09:08)
[2024-08-23] MEDS: DOCUSATE SOD 100 MG CAPSULE PO (09:08)
[2024-08-23] MEDS: POTASSIUM CHLORIDE 20 mEq TABCR PO (09:14)
--- NOTE | 2024-08-23 09:26 | PC.SS ---
SS follow up note; LFT's trending upward. Possible MRCP. Patient will discharge back home when medically cleared.
[2024-08-24] VITALS (7 sets, daily range): BP systolic 113–126; BP diastolic 63–80; PULSE 64–82; RESP 16–97; TEMP 36.1–36.6; O2SAT 96–100
--- NOTE | 2024-08-24 | XR_ITS ---
MRI abdomen, without contrast. MRCP Date and time of exam: August 24, 2024 at 1700 hours INDICATIONS: Status post cholecystectomy with elevated bilirubin 1.4 Technique: Multiple axial and coronal images of the abdomen have been obtained with the Siemens 1.5T MRI scanner. Images obtained included T1 weighted transverse images, T2-weighted transverse images, T2-weighted transverse images fat-suppressed, T2 weighted haste fat suppressed transverse images, T1 weighted images, in and out of phase images, T2-weighted coronal images, breath hold, T2 weighted haze coronal images as well as T2 weighted coronal thick slab images, MRCP. Findings: Absent gallbladder Mild intrahepatic biliary tract dilatation Common bile duct 5 mm Abrupt termination of the distal common bile duct axial image 16, suspicious for impacted stone No splenomegaly No pancreatitis No ascites No hydronephrosis IMPRESSION: Suspicious for 5 mm impacted stone in the distal common bile duct, consider ERCP follow-up
[2024-08-24] MEDS: MORPHINE SULF INJ 10 MG/ML VIAL 2 MG IVP ×3 (03:14→18:35)
[2024-08-24] MEDS: PIPER/TAZO 3.375 GM PREMIX 3.375 GM/50 ML BAG IV ×3 (06:14→22:51)
[2024-08-24 06:25] LABS: Basophils # (Auto) 0.1 Thou/mm3 (0.0-0.2); Basophils % (Auto) 1 % (0-2.5); Eosinophils # (Auto) 0.2 Thou/mm3 (0.0-0.5); Eosinophils % (Auto) 3 % (0-10); Hematocrit 31.9 % (36.0-46.0); Hemoglobin 10.5 g/dL (12.0-16.0); Immature Granulocytes % (Auto) 0 % (0-0); Immature Granulocytes Auto 0.01 Thou/mm3 (0.00-0.00); Lymphocytes # (Auto) 1.8 Thou/mm3 (1.0-4.8); Lymphocytes % (Auto) 33 % (10-50); Mean Corpuscular HGB Conc 32.9 g/dl (31.0-37.0); Mean Corpuscular Hemoglobin 29.2 pg (25.0-35.0); Mean Corpuscular Volume 89 fL (80-100); Monocytes # (Auto) 0.6 Thou/mm3 (0.0-0.8); Monocytes % (Auto) 11 % (0-12); Neutrophils # (Auto) 2.8 Thou/mm3 (1.8-7.7); Neutrophils % (Auto) 51 % (37-80); Nucleated Red Blood Cell % 0 /100 WBC (0); Platelet Count 217 Thou/mm3 (140-440); RDW Standard Deviation 54.2 fL (36.4-46.3); Red Blood Count 3.59 Miln/mm3 (4.00-5.20); White Blood Count 5.5 Thou/mm3 (3.6-11.0)
[2024-08-24 07:02] LABS: Alanine Aminotransferase 361 U/L (10-49); Albumin, Serum 3.9 gm/dL (3.5-5.0); Albumin/Globulin Ratio 1.6 (1.2-2.2); Alkaline Phosphatase 148 U/L (46-116); Anion Gap 9 (7-16); Aspartate Amino Transferase 447 U/L (0-34); BUN/Creatinine Ratio 12 Ratio (12-20); Bilirubin,Total 1.8 mg/dL (0.3-1.2); Blood Urea Nitrogen 7 mg/dL (9-23); Calcium 8.2 mg/dL (8.3-10.6); Calcium (Corrected) 8.3 mg/dL (8.5-10.1); Carbon Dioxide 23.6 mMol/L (20.0-31.0); Chloride 109 mMol/L (98-107); Creatinine (Component) 0.6 mg/dL (0.6-1.3); Estimated Creatinine Clearance 130.2 mL/min (>60); Globulin 2.4 gm/dL (2.3-3.5); Glucose 92 mg/dL (74-106); Osmolality,Calculated 281 (275-295); Phosphorous 2.7 mg/dL (2.4-5.1); Potassium 3.6 mMol/L (3.4-5.1); Sodium 142 mMol/L (136-145); Total Protein 6.3 gm/dL (5.7-8.2); eGFR > 60 See Note
[2024-08-24] MEDS: PANTOPRAZOLE INJ 40 MG VIAL IVP (08:12)
--- NOTE | 2024-08-24 09:35 | PC.SS ---
Team A reported that pts LFT is high Pending MRCP, no d/c yet.
--- NOTE | 2024-08-24 10:29 | ESPR_ITS ---
Documentation for date of: 08/24/24 Subjective Subjective Narrative: Patient is seen and examined. Clinically he is improving. Pain is well- controlled and she is tolerating liquid diet Exam Vital Signs Temp Pulse Resp BP Pulse Ox O2 Del Method O2 Flow Rate 97.3 F 81 19 113/69 97 Room Air 2 08/24/24 08:00 08/24/24 10:22 08/24/24 10:22 08/24/24 08:00 08/24/24 08:00 08/24/24 08:00 08/23/24 20:00 Constitutional Constitutional: no acute distress Routine Abdominal Exam Abdominal: Present soft, normoactive bowel sounds and tenderness (Minimal epigastric incisional tenderness. Incisions are clean, dry and intact); Absent distended Assessment & Plan Assessment Additional comments: Postop day #2 status post laparoscopic cholecystectomy. Liver enzymes slightly more elevated than yesterday Plan Will obtain MRCP. If no CBD stone, patient can be discharged with follow-up liver enzymes in 2 weeks. Procedures Procedures Laparoscopic cholecystectomy
--- NOTE | 2024-08-24 14:07 | ESPR_ITS ---
Documentation for date of: 08/24/24 Subjective Subjective Interval history: Patient was seen and examined at bedside this morning. No acute overnight events. Patient's liver enzymes did continue to uptrend as well as his T bilirubin to 1.4 therefore we will get MRCP for any possible obstruction. At this time patient has no other complaints and has been tolerating diet well and has been having bowel movements. Exam Vital Signs Temp Pulse Resp BP Pulse Ox O2 Del Method O2 Flow Rate 97.4 F 64 17 126/63 100 Room Air 2 08/24/24 12:00 08/24/24 12:00 08/24/24 12:00 08/24/24 12:00 08/24/24 12:00 08/24/24 12:00 08/23/24 20:00 Narrative Exam General: A/O x3, no acute distress, well-nourished, well-developed Eyes: PERRL, EOMI. Anicteric, vision grossly intact. Ears: No ear pain, no ear discharge, Hearing grossly intact. Nose: No nasal discharge. Mouth/Throat: Moist mucous membranes, no redness, no lesions. Neck: Neck supple, non-tender, no cervical lymphadenopathy. Lungs: Clear SULMA to auscultation and percussion, No accessory muscle use. Cardio: Normal S1/S2, regular rhythm, no murmurs, no JVD or carotid bruits. Abdomen: Soft, mild tenderness in RUQ, no palpable masses, peristalsis present, no guarding or rebound. Extremities: Symmetrical, no significant deformities, no peripheral edema , non-tender, peripheral pulses presents. Skin: No rashes, no lesions, warm to touch. Neuro: No focal neurological deficits. motor and sensory intact. Psych: Cooperative, appropriate mood and effect. Objective Labs 08/24/24 05:26 08/24/24 05:26 Labs: Laboratory Results - last 24 hr 08/24/24 05:26 WBC 5.5 RBC 3.59 L Hgb 10.5 L Hct 31.9 L MCV 89 MCH 29.2 MCHC 32.9 RDW Std Deviation 54.2 H Plt Count 217 Neut % (Auto) 51 Lymph % (Auto) 33 [place] % (Auto) 11 Eos % (Auto) 3 Baso % (Auto) 1 Neut # (Auto) 2.8 Lymph # (Auto) 1.8 [place] # (Auto) 0.6 Eos # (Auto) 0.2 Baso # (Auto) 0.1 Immature Gran # (Auto) 0.01 H Absolute Nucleated RBC 0.00 Immature Gran % 0 Nucleated RBC % 0 Sodium 142 Potassium 3.6 Chloride 109 H Carbon Dioxide 23.6 Anion Gap 9 BUN 7 L Creatinine 0.6 Estim Creat Clear Calc 130.2 eGFR > 60 BUN/Creatinine Ratio 12 Glucose 92 Calculated Osmolality 281 Calcium 8.2 L Corrected Calcium 8.3 L Phosphorus 2.7 Magnesium 2.0 Total Bilirubin 1.8 H AST 447 H ALT 361 H Alkaline Phosphatase 148 H D Total Protein 6.3 Albumin 3.9 Globulin 2.4 Albumin/Globulin Ratio 1.6 Quality Measures Quality Measures none Assessment & Plan Assessment Current Active Medications: Generic Name Dose Route Start Last Admin Trade Name Freq PRN Reason Stop Dose Admin Acetaminophen 650 mg 08/21/24 22:41 Acetaminophen 325 Mg Tablet PO 09/20/24 22:40 Q6H PRN Pain (1-3) & Fever >101.5 Hydrocodone Bitart/Acetaminophen 1 tab 08/21/24 22:41 08/22/24 08:42 Hydrocodone/Apap 5/325 Tablet PO 08/26/24 22:40 1 tab Q4HR PRN Administration PAIN SCALE 4-6 (Moderate Docusate Sodium 100 mg 08/22/24 21:00 08/24/24 08:08 Docusate Sod 100 Mg Capsule PO 09/21/24 20:59 Not Given BID DEE Protocol Piperacillin/Tazobactam/Dextrose 3.375 gm in 50 mls @ 12.5 mls/hr 08/22/24 06:30 08/24/24 13:59 Zosyn IV 08/29/24 06:29 12.5 mls/hr Q8HR DEE Administration Protocol Morphine Sulfate 2 mg 08/21/24 22:41 08/24/24 09:56 Morphine Sulf Inj 10 Mg/Ml Vial IVP 08/26/24 22:40 2 mg Q6H PRN Administration PAIN SCALE 7-10 (Severe Ondansetron HCl 4 mg 08/21/24 22:41 08/22/24 03:17 Ondansetron Inj 2 Mg/Ml Inj 2 Ml IV 09/20/24 22:40 4 mg Q6H PRN Administration NAUSEA OR VOMITING Protocol Pantoprazole Sodium 40 mg 08/22/24 09:00 08/24/24 08:12 Pantoprazole Inj 40 Mg Vial IVP 09/21/24 08:59 40 mg QDAY DEE Administration Plan 39-year-old female with no significant past medical history was admitted to the hospital on 08/21/2024 due to acute calculus cholecystitis. #Acute calculus cholecystitis s/p cholecystectomy #Abdominal pain #Transaminitis #Hyperbilirubinemia Patient came into the ED with complaints of epigastric abdominal pain since earlier on the day of admission Gallbladder ultrasound showed acute calculus cholecystitis and normal CBD. Cholecystectomy 08/22/2024 LFTs elevated T bilirubin have been uptrending. Plan: Will continue with Zosyn (08/21/2024?) MRCP ordered Pain management as needed Protonix General Surgery on board, appreciate recommendations #Normocytic normochromic anemia Patient came in with a hemoglobin of 11.7 This morning hemoglobin was 10.5 Most likely hemodilution No active signs of bleeding Plan: Will continue to monitor and transfuse hemoglobin less than 7 #Hypokalemia, resolved Disposition: Patient admitted for calculus cholecystitis s/p cholecystectomy,pending MRCP Diet: full liquid GI prophylaxis: protonix DVT prophylaxis: heparin subcu Code: Full Case disclosed with Attending Dr. Kerry Mcgill PGY1 Attending Provider Attestation/Addendum I reviewed labs, imaging, EKG, home medications and prior available records. Face to face evaluation was performed by me. I have personally examined the patient and discussed assessment and plan with the IM team. I reviewed the resident note and agree with the plan with exceptions as below. Acute calculus cholecystitis Hypokalemia Transaminitis, getting worse She received IV Zosyn Consulted surgery: Status post laparoscopic cholecystectomy on 08/22 LFTs got worse. Discussed with GI: Concern for choledocholithiasis. LFTs continue to uptrend. Ordered MRCP. Discussed with surgery: Can discharge if MRCP is negative. Management of nausea/vomiting as needed Management of pain as needed Replete potassium as needed and monitor BMP
--- NOTE | 2024-08-24 14:57 | PD.ADDDSCHGE ---
Addendum Discharge Addendum Date of report being addended: 08/24/24 Narrative: I reviewed labs, imaging, EKG, home medications and prior available records. Face to face evaluation was performed by me. I have personally examined the patient and discussed assessment and plan with the IM team. I reviewed the resident note and agree with the plan with exceptions as below. Acute calculus cholecystitis Hypokalemia Transaminitis, getting worse She received IV Zosyn Consulted surgery: Status post laparoscopic cholecystectomy on 08/22 LFTs got worse. Discussed with GI: Concern for choledocholithiasis. LFTs continue to uptrend. Ordered MRCP. Discussed with surgery: Can discharge if MRCP is negative. Management of nausea/vomiting as needed Management of pain as needed Replete potassium as needed and monitor BMP Time spent is 40 minutes. More than 50% of the time was spent on patient education and coordination of care.
--- NOTE | 2024-08-24 16:47 | PC.NURSE ---
Patient went down to MRI at this time. --Ja
[2024-08-25] VITALS: BP 125/71; PULSE 82; RESP 18; TEMP 36.4; O2SAT 97
[2024-08-25] MEDS: MORPHINE SULF INJ 10 MG/ML VIAL 2 MG IVP ×4 (02:19→21:18)
[2024-08-25 04:00] VITALS: BP 125/78; PULSE 74; RESP 17; TEMP 36.4; O2SAT 97
[2024-08-25 05:48] LABS: Basophils # (Auto) 0.1 Thou/mm3 (0.0-0.2); Basophils % (Auto) 1 % (0-2.5); Eosinophils # (Auto) 0.4 Thou/mm3 (0.0-0.5); Eosinophils % (Auto) 7 % (0-10); Hematocrit 32.2 % (36.0-46.0); Hemoglobin 10.2 g/dL (12.0-16.0); Immature Granulocytes % (Auto) 0 % (0-0); Immature Granulocytes Auto 0.01 Thou/mm3 (0.00-0.00); Lymphocytes # (Auto) 1.5 Thou/mm3 (1.0-4.8); Lymphocytes % (Auto) 28 % (10-50); Mean Corpuscular HGB Conc 31.7 g/dl (31.0-37.0); Mean Corpuscular Hemoglobin 29.2 pg (25.0-35.0); Mean Corpuscular Volume 92 fL (80-100); Monocytes # (Auto) 0.6 Thou/mm3 (0.0-0.8); Monocytes % (Auto) 10 % (0-12); Neutrophils # (Auto) 2.9 Thou/mm3 (1.8-7.7); Neutrophils % (Auto) 54 % (37-80); Nucleated Red Blood Cell % 0 /100 WBC (0); Platelet Count 225 Thou/mm3 (140-440); RDW Standard Deviation 57.1 fL (36.4-46.3); Red Blood Count 3.49 Miln/mm3 (4.00-5.20); White Blood Count 5.3 Thou/mm3 (3.6-11.0)
[2024-08-25] MEDS: PIPER/TAZO 3.375 GM PREMIX 3.375 GM/50 ML BAG IV ×3 (05:54→21:19)
[2024-08-25 06:47] LABS: Alanine Aminotransferase 330 U/L (10-49); Albumin/Globulin Ratio 1.6 (1.2-2.2); Alkaline Phosphatase 173 U/L (46-116); Anion Gap 9 (7-16); Aspartate Amino Transferase 300 U/L (0-34); BUN/Creatinine Ratio 18 Ratio (12-20); Bilirubin,Total 1.4 mg/dL (0.3-1.2); Blood Urea Nitrogen 11 mg/dL (9-23); Calcium 8.5 mg/dL (8.3-10.6); Calcium (Corrected) 8.5 mg/dL (8.5-10.1); Carbon Dioxide 23.8 mMol/L (20.0-31.0); Chloride 108 mMol/L (98-107); Creatinine (Component) 0.6 mg/dL (0.6-1.3); Estimated Creatinine Clearance 130.2 mL/min (>60); Globulin 2.5 gm/dL (2.3-3.5); Glucose 90 mg/dL (74-106); Magnesium 2.1 mg/dL (1.6-2.6); Osmolality,Calculated 280 (275-295); Phosphorous 3.9 mg/dL (2.4-5.1); Potassium 3.6 mMol/L (3.4-5.1); Sodium 141 mMol/L (136-145); Total Protein 6.5 gm/dL (5.7-8.2); eGFR > 60 See Note
[2024-08-25 08:00] VITALS: BP 109/72; PULSE 84; RESP 17; TEMP 36.1; O2SAT 96
--- NOTE | 2024-08-25 08:22 | PD.SURPROG ---
Documentation for date of: 08/25/24 Subjective Subjective Narrative: Pt is seen and examined. Exam Vital Signs Temp Pulse Resp BP Pulse Ox O2 Del Method O2 Flow Rate 97.5 F 74 17 125/78 97 Room Air 2 08/25/24 04:00 08/25/24 04:00 08/25/24 04:00 08/25/24 04:00 08/25/24 04:00 08/25/24 04:00 08/23/24 20:00 Constitutional Constitutional: no acute distress Routine Abdominal Exam Abdominal: Present soft and normoactive bowel sounds; Absent distended Assessment & Plan Assessment Additional comments: S/P laparoscopic cholecystectomy. MRCP revealed distal CBD stone. Plan Keep NPO. Spoke with Dr Art who will evaluate the pt for an ERCP. Procedures Procedures Laparoscopic cholecystectomy
[2024-08-25] MEDS: PANTOPRAZOLE INJ 40 MG VIAL IVP (08:37)
--- NOTE | 2024-08-25 09:12 | PC.SS ---
Team A reported that MRCP was done and showed stones. ERCP is pending; Dr. Heath is following.
--- NOTE | 2024-08-25 10:35 | PD.ADDPROG ---
Addendum Progress Note Addendum Date of report being addended: 08/24/24 Narrative: I reviewed labs, imaging, EKG, home medications and prior available records. Face to face evaluation was performed by me. I have personally examined the patient and discussed assessment and plan with the IM team. I reviewed the resident note and agree with the plan with exceptions as below. Acute calculus cholecystitis Hypokalemia Transaminitis, getting worse CBD stone She received IV Zosyn Consulted surgery: Status post laparoscopic cholecystectomy on 08/22 LFTs got worse. Discussed with GI: Concern for choledocholithiasis. LFTs continue to uptrend. Ordered MRCP: showed CBD stone. Discussed with surgery: consulted Dr. Art. Management of nausea/vomiting as needed Management of pain as needed Replete potassium as needed and monitor BMP
[2024-08-25 12:00] VITALS: BP 129/75; PULSE 68; RESP 16; TEMP 36; O2SAT 96
--- NOTE | 2024-08-25 12:47 | PD.RESPRO ---
Documentation for date of: 08/25/24 Subjective Subjective Interval history: Patient was seen and examined at bedside this morning. No acute overnight events. MRCP showed a 5mm stone in the distal CBD. Patient will undergo ERCP later today. No other complaints at this time. No jaundice appreciated. Exam Vital Signs Temp Pulse Resp BP Pulse Ox O2 Del Method O2 Flow Rate 97 F 84 17 109/72 96 Room Air 2 08/25/24 08:00 08/25/24 08:00 08/25/24 08:00 08/25/24 08:00 08/25/24 08:00 08/25/24 08:00 08/23/24 20:00 Narrative Exam General: A/O x3, no acute distress, well-nourished, well-developed Eyes: PERRL, EOMI. Anicteric, vision grossly intact. Ears: No ear pain, no ear discharge, Hearing grossly intact. Nose: No nasal discharge. Mouth/Throat: Moist mucous membranes, no redness, no lesions. Neck: Neck supple, non-tender, no cervical lymphadenopathy. Lungs: Clear SULMA to auscultation and percussion, No accessory muscle use. Cardio: Normal S1/S2, regular rhythm, no murmurs, no JVD or carotid bruits. Abdomen: Soft, mild tenderness in RUQ, no palpable masses, peristalsis present, no guarding or rebound. Extremities: Symmetrical, no significant deformities, no peripheral edema , non-tender, peripheral pulses presents. Skin: No rashes, no lesions, warm to touch. Neuro: No focal neurological deficits. motor and sensory intact. Psych: Cooperative, appropriate mood and effect. Objective Labs 08/25/24 04:50 08/25/24 04:50 Labs: Laboratory Results - last 24 hr 08/25/24 04:50 WBC 5.3 RBC 3.49 L Hgb 10.2 L Hct 32.2 L MCV 92 MCH 29.2 MCHC 31.7 RDW Std Deviation 57.1 H Plt Count 225 Neut % (Auto) 54 Lymph % (Auto) 28 [place] % (Auto) 10 Eos % (Auto) 7 Baso % (Auto) 1 Neut # (Auto) 2.9 Lymph # (Auto) 1.5 [place] # (Auto) 0.6 Eos # (Auto) 0.4 Baso # (Auto) 0.1 Immature Gran # (Auto) 0.01 H Absolute Nucleated RBC 0.00 Immature Gran % 0 Nucleated RBC % 0 Sodium 141 Potassium 3.6 Chloride 108 H Carbon Dioxide 23.8 Anion Gap 9 BUN 11 Creatinine 0.6 Estim Creat Clear Calc 130.2 eGFR > 60 BUN/Creatinine Ratio 18 Glucose 90 Calculated Osmolality 280 Calcium 8.5 Corrected Calcium 8.5 Phosphorus 3.9 Magnesium 2.1 Total Bilirubin 1.4 H AST 300 H ALT 330 H Alkaline Phosphatase 173 H D Total Protein 6.5 Albumin 4.0 Globulin 2.5 Albumin/Globulin Ratio 1.6 Quality Measures Quality Measures none Assessment & Plan Assessment Current Active Medications: Generic Name Dose Route Start Last Admin Trade Name Freq PRN Reason Stop Dose Admin Acetaminophen 650 mg 08/21/24 22:41 Acetaminophen 325 Mg Tablet PO 09/20/24 22:40 Q6H PRN Pain (1-3) & Fever >101.5 Hydrocodone Bitart/Acetaminophen 1 tab 08/21/24 22:41 08/22/24 08:42 Hydrocodone/Apap 5/325 Tablet PO 08/26/24 22:40 1 tab Q4HR PRN Administration PAIN SCALE 4-6 (Moderate Docusate Sodium 100 mg 08/22/24 21:00 08/25/24 08:36 Docusate Sod 100 Mg Capsule PO 09/21/24 20:59 Not Given BID DEE Protocol Piperacillin/Tazobactam/Dextrose 3.375 gm in 50 mls @ 12.5 mls/hr 08/22/24 06:30 08/25/24 05:54 Zosyn IV 08/29/24 06:29 12.5 mls/hr Q8HR DEE Administration Protocol Morphine Sulfate 2 mg 08/21/24 22:41 08/25/24 08:37 Morphine Sulf Inj 10 Mg/Ml Vial IVP 08/26/24 22:40 2 mg Q6H PRN Administration PAIN SCALE 7-10 (Severe Ondansetron HCl 4 mg 08/21/24 22:41 08/22/24 03:17 Ondansetron Inj 2 Mg/Ml Inj 2 Ml IV 09/20/24 22:40 4 mg Q6H PRN Administration NAUSEA OR VOMITING Protocol Pantoprazole Sodium 40 mg 08/22/24 09:00 08/25/24 08:37 Pantoprazole Inj 40 Mg Vial IVP 09/21/24 08:59 40 mg QDAY DEE Administration Plan 39-year-old female with no significant past medical history was admitted to the hospital on 08/21/2024 due to acute calculus cholecystitis. #Acute calculus cholecystitis s/p cholecystectomy #Abdominal pain #Transaminitis #Hyperbilirubinemia #Choledocholithiasis Patient came into the ED with complaints of epigastric abdominal pain since earlier on the day of admission Gallbladder ultrasound showed acute calculus cholecystitis and normal CBD. Cholecystectomy 08/22/2024 LFTs elevated T bilirubin slightly downtrending MRCP showed a 5mm stone in distal CBD. Plan: Will continue with Zosyn (08/21/2024?) Pending ERCP Pain management as needed Protonix General Surgery on board, appreciate recommendations GI on board, appreciate recommendations #Normocytic normochromic anemia Patient came in with a hemoglobin of 11.7 This morning hemoglobin was 10.2 Most likely hemodilution No active signs of bleeding Plan: Will continue to monitor and transfuse hemoglobin less than 7 #Hypokalemia, resolved Disposition: Patient admitted for calculus cholecystitis s/p cholecystectomy,pending ERCP Diet: NPO GI prophylaxis: protonix DVT prophylaxis: heparin subcu Code: Full Case disclosed with Attending Dr. Raza Mcgill PGY1 Attending Provider Attestation/Addendum I have discussed and was present for the essential components of the history, physical examination, diagnosis, and treatment plan with the resident. I agree with the patient's care as documented by the resident and amended herein by me. Milo Person DO. Patient seen and evaluated this AM. No acute events overnight, patient was unfortunately fed this morning hence ERCP pushed till tomorrow Although this document has been carefully reviewed, there may still be some phonetic and other typographical errors. These errors are purely grammatical due to imperfections in the software program and should not be construed in any way to compromise the substance of the patient's medical care during this visit.
--- NOTE | 2024-08-25 14:47 | PD.IMCONS ---
HPI Data of Consult Requesting Physician: Vance Payne MD Primary Care Provider: Physician No Primary/Family Consult Narrative History of present illness: Pt is a 39 year old female with GB stone s/p lap bogdan, had a rise in lft s/p mrcp showed cbd stone. no acute distress. cc:: cc: Vance Payne MD Review of Systems Review of Systems Narrative Review of Systems: all neg except pos pertinent ones in h and p Meds Home Medications and Allergies Allergies Allergy/AdvReac Type Severity Reaction Status Date / Time No Known Allergies Allergy Verified 08/21/24 16:42 Exam Vital Signs Temp Pulse Resp BP Pulse Ox O2 Del Method O2 Flow Rate 96.8 F 68 16 129/75 96 Room Air 2 08/25/24 12:00 08/25/24 12:00 08/25/24 12:00 08/25/24 12:00 08/25/24 12:00 08/25/24 12:00 08/23/24 20:00 Routine Abdominal Exam Comments: tender abdomen Results Labs 08/25/24 04:50 08/25/24 04:50 Labs: Short CBC 08/25/24 Range/Units 04:50 WBC 5.3 (3.6-11.0) Thou/mm3 Hgb 10.2 L (12.0-16.0) g/dL Hct 32.2 L (36.0-46.0) % Plt Count 225 (140-440) Thou/mm3 BMP 08/25/24 04:50 Sodium 141 Potassium 3.6 Chloride 108 H Carbon Dioxide 23.8 BUN 11 Creatinine 0.6 Glucose 90 Calcium 8.5 Liver Function 08/25/24 Range/Units 04:50 Total Bilirubin 1.4 H (0.3-1.2) mg/dL AST 300 H (0-34) U/L ALT 330 H (10-49) U/L Alkaline Phosphatase 173 H D (46-116) U/L Albumin 4.0 (3.5-5.0) gm/dL Assessment and Plan Additional Assessment & Plan Additional Plan: 39 year old female with GB stone s/p lap bogdan, had a rise in lft s/p mrcp showed cbd stone. ERCP tomorrow NPO at [place] INR tomorrow Will follow
--- NOTE | 2024-08-25 15:18 | PC.SS ---
Rounding notes: Pt is scheduled for a gallbladder removal. ERCP tomorrow. Dr. Heath following. At this time there is no d/c date.
[2024-08-25 16:00] VITALS: BP 122/71; PULSE 70; RESP 16; TEMP 36.2; O2SAT 97
[2024-08-25 20:00] VITALS: BP 129/73; PULSE 85; RESP 16; TEMP 36.7; O2SAT 97
[2024-08-26] VITALS (12 sets, daily range): BP systolic 115–157; BP diastolic 66–99; PULSE 66–93; RESP 14–20; TEMP 36.1–36.7; O2SAT 95–100
[2024-08-26] MEDS: PIPER/TAZO 3.375 GM PREMIX 3.375 GM/50 ML BAG IV ×3 (05:33→21:03)
[2024-08-26] MEDS: MORPHINE SULF INJ 10 MG/ML VIAL 2 MG IVP ×3 (05:33→18:18)
[2024-08-26 06:20] LABS: Basophils % (Auto) 1 % (0-2.5); Eosinophils # (Auto) 0.4 Thou/mm3 (0.0-0.5); Eosinophils % (Auto) 8 % (0-10); Hematocrit 32.1 % (36.0-46.0); Hemoglobin 10.3 g/dL (12.0-16.0); Immature Granulocytes % (Auto) 0 % (0-0); Immature Granulocytes Auto 0.01 Thou/mm3 (0.00-0.00); Lymphocytes # (Auto) 1.5 Thou/mm3 (1.0-4.8); Lymphocytes % (Auto) 29 % (10-50); Mean Corpuscular HGB Conc 32.1 g/dl (31.0-37.0); Mean Corpuscular Hemoglobin 28.9 pg (25.0-35.0); Mean Corpuscular Volume 90 fL (80-100); Monocytes # (Auto) 0.5 Thou/mm3 (0.0-0.8); Monocytes % (Auto) 10 % (0-12); Neutrophils # (Auto) 2.6 Thou/mm3 (1.8-7.7); Neutrophils % (Auto) 52 % (37-80); Nucleated Red Blood Cell % 0 /100 WBC (0); Platelet Count 233 Thou/mm3 (140-440); RDW Standard Deviation 55.7 fL (36.4-46.3); Red Blood Count 3.57 Miln/mm3 (4.00-5.20); White Blood Count 5.1 Thou/mm3 (3.6-11.0)
[2024-08-26 07:03] LABS: Alanine Aminotransferase 309 U/L (10-49); Albumin/Globulin Ratio 1.5 (1.2-2.2); Alkaline Phosphatase 207 U/L (46-116); Anion Gap 8 (7-16); Aspartate Amino Transferase 244 U/L (0-34); BUN/Creatinine Ratio 18 Ratio (12-20); Bilirubin,Total 1.1 mg/dL (0.3-1.2); Blood Urea Nitrogen 11 mg/dL (9-23); Calcium 8.8 mg/dL (8.3-10.6); Calcium (Corrected) 8.8 mg/dL (8.5-10.1); Carbon Dioxide 25.6 mMol/L (20.0-31.0); Chloride 106 mMol/L (98-107); Creatinine (Component) 0.6 mg/dL (0.6-1.3); Estimated Creatinine Clearance 130.2 mL/min (>60); Globulin 2.6 gm/dL (2.3-3.5); Glucose 91 mg/dL (74-106); Osmolality,Calculated 278 (275-295); Phosphorous 3.8 mg/dL (2.4-5.1); Potassium 3.9 mMol/L (3.4-5.1); Sodium 140 mMol/L (136-145); Total Protein 6.6 gm/dL (5.7-8.2); eGFR > 60 See Note
[2024-08-26] MEDS: PANTOPRAZOLE INJ 40 MG VIAL IVP (08:58)
[2024-08-26 09:55] LABS: Prothrombin Time 10.8 Seconds (9.0-12.2)
--- NOTE | 2024-08-26 10:06 | PC.SS ---
SS follow up note; Patient is pending ERCP. Patient will discharge back home once medically cleared.
[2024-08-26] MEDS: RINGERS LACTATED 1000 ML 1,000 ML 125 ML IV (13:55)
--- NOTE | 2024-08-26 14:00 | XR_ITS ---
Examination: ERCP Fluoroscopy 26 spot abdomen fluoroscopic films Exam date and time: August 26, 2024 1527 hours INDICATIONS: Status post cholecystectomy with elevated bilirubin this week, 5 mm impacted stone in the distal common bile duct on MRCP August 24, 2024 TECHNIQUE AND FINDINGS: Opacification of the intrahepatic common hepatic and common bile ducts 26 spot fluoroscopic films of the abdomen Fluoroscopy 29 seconds radiation dose 5.604 milligray Balloon sweeping of the common bile duct IMPRESSION: ERCP as above
[2024-08-26] MEDS: INDOMETHACIN 50 MG SUPP 100 MG PR (14:56)
--- NOTE | 2024-08-26 15:12 | SUR.PHASEI ---
1512: Pt. AAOx4, vitals stable, breathing unlabored, complaint of pain, will give pain medication, no dressing in place, no active bleed noted, report received from MD Vee and Maykel CHU.
[2024-08-26] MEDS: fentaNYL CIT INJ 50 mCg/ML AMP 2ML IV ×2 (15:20→15:28)
[2024-08-26] MEDS: PANTOPRAZOLE INJ 40 MG VIAL 80 MG IV (15:33)
--- NOTE | 2024-08-26 15:35 | PD.RESPRO ---
Documentation for date of: 08/26/24 Subjective Subjective Interval history: Overnight, no acute events reported. Patient denies any abdominal pain, fever/chills. Labs unremarkable except for downtrending LFTs and slightly elevated alk phos. Dr. Art, GI completed ERCP and successfully removed 5 mm stone in common bile duct. Patient is to be kept overnight to monitor for any pancreatitis, bleeding, perforation or cholangitis. Patient will continue with PPI daily, and will follow-up with pathology with Dr. Art. Will also send for H. pylori.and follow-up with him in his clinic in 2 to 4 weeks. Anticipate discharge in 24 hours. Exam Vital Signs Temp Pulse Resp BP Pulse Ox O2 Del Method O2 Flow Rate 97.0 F 66 18 135/78 H 97 Room Air 2 08/26/24 11:47 08/26/24 11:47 08/26/24 11:47 08/26/24 11:47 08/26/24 11:47 08/26/24 11:47 08/23/24 20:00 Narrative Exam General Appearance: Pt in NAD laying comfortably in bed. HEENT: NC/AT, no scleral icterus, no conjunctival pallor, MMM Lungs: CTAB, no wheezes or crackles appreciated CVS: RRR, S1/S2 heard, no murmurs or rubs appreciated ABD: Soft, non-tender, non-distended, BS + in all 4 quadrants EXT: no deformity/edema/lesions/cyanosis/clubbing, radial pulses 2+ BL, DP pulses 2 + BL SKIN: Skin exam normal without any rashes. Neuro: A&O x 3. No gross neurological deficits. Motor and sensory grossly intact in B/L UL and LL. Psych: Appropriate mood and affect Objective Labs 08/26/24 05:08/26/24 05:25 Labs: Laboratory Results - last 24 hr 08/26/24 08/26/24 05: 09:00 WBC 5.1 RBC 3.57 L Hgb 10.3 L Hct 32.1 L MCV 90 MCH 28.9 MCHC 32.1 RDW Std Deviation 55.7 H Plt Count 233 Neut % (Auto) 52 Lymph % (Auto) 29 [place] % (Auto) 10 Eos % (Auto) 8 Baso % (Auto) 1 Neut # (Auto) 2.6 Lymph # (Auto) 1.5 [place] # (Auto) 0.5 Eos # (Auto) 0.4 Baso # (Auto) 0.0 Immature Gran # (Auto) 0.01 H Absolute Nucleated RBC 0.00 Immature Gran % 0 Nucleated RBC % 0 PT 10.8 INR 1.0 Sodium 140 Potassium 3.9 Chloride 106 Carbon Dioxide 25.6 Anion Gap 8 BUN 11 Creatinine 0.6 Estim Creat Clear Calc 130.2 eGFR > 60 BUN/Creatinine Ratio 18 Glucose 91 Calculated Osmolality 278 Calcium 8.8 Corrected Calcium 8.8 Phosphorus 3.8 Magnesium 2.0 Total Bilirubin 1.1 AST 244 H ALT 309 H Alkaline Phosphatase 207 H D Total Protein 6.6 Albumin 4.0 Globulin 2.6 Albumin/Globulin Ratio 1.5 Quality Measures Quality Measures none Assessment & Plan Assessment Current Active Medications: Generic Name Dose Route Start Last Admin Trade Name Freq PRN Reason Stop Dose Admin Acetaminophen 650 mg 08/21/24 22:41 Acetaminophen 325 Mg Tablet PO 09/20/24 22:40 Q6H PRN Pain (1-3) & Fever >101.5 Hydrocodone Bitart/Acetaminophen 1 tab 08/21/24 22:41 08/22/24 08:42 Hydrocodone/Apap 5/325 Tablet PO 08/26/24 22:40 1 tab Q4HR PRN Administration PAIN SCALE 4-6 (Moderate Docusate Sodium 100 mg 08/22/24 21:00 08/26/24 08:58 Docusate Sod 100 Mg Capsule PO 09/21/24 20:59 Not Given BID [facility] Protocol Fentanyl Citrate 50 mcg 08/26/24 14:44 08/26/24 15:28 Fentanyl Cit Inj 50 Mcg/Ml Amp 2ml IV 08/26/24 16:44 50 mcg Q5MIN PRN Administration PAIN SCALE 4-10(Mod-Sev Hydralazine HCl 5 mg 08/26/24 14:44 Hydralazine Inj 20 Mg/Ml Vial IV 08/26/24 16:44 Q20MIN PRN SEE COMMENTS Piperacillin/Tazobactam/Dextrose 3.375 gm in 50 mls @ 12.5 mls/hr 08/22/24 06:30 08/26/24 13:00 Zosyn IV 08/29/24 06:29 12.5 mls/hr Q8HR DEE Administration Protocol Lactated Ringer's 1,000 mls @ 125 mls/hr 08/26/24 15:21 08/26/24 13:55 Lactated Ringers IV 08/26/24 23:20 125 mls/hr .Q8H ONE Administration Meperidine HCl 12.5 mg 08/26/24 14:44 Meperidine Inj 50 Mg/Ml Vial IV 08/26/24 16:44 Q5M PRN SHIVERING Midazolam HCl 1 mg 08/26/24 14:44 Midazolam Inj 1 Mg/Ml Vial 2 Ml IV 08/26/24 16:44 Q5MIN PRN ANXIETY Morphine Sulfate 2 mg 08/21/24 22:41 08/26/24 11:57 Morphine Sulf Inj 10 Mg/Ml Vial IVP 08/26/24 22:40 2 mg Q6H PRN Administration PAIN SCALE 7-10 (Severe Ondansetron HCl 4 mg 08/21/24 22:41 08/22/24 03:17 Ondansetron Inj 2 Mg/Ml Inj 2 Ml IV 09/20/24 22:40 4 mg Q6H PRN Administration NAUSEA OR VOMITING Protocol Pantoprazole Sodium 40 mg 08/22/24 09:00 08/26/24 08:58 Pantoprazole Inj 40 Mg Vial IVP 09/21/24 08:59 40 mg QDAY DEE Administration Plan 39-year-old female with no significant past medical history was admitted to the hospital on 08/21/2024 due to acute calculus cholecystitis. #Acute calculus cholecystitis s/p cholecystectomy, postop day #4 #Transaminitis?resolving #Hyperbilirubinemia #Choledocholithiasis-resolved status post ERCP Patient came into the ED with complaints of epigastric abdominal pain since earlier on the day of admission Gallbladder ultrasound showed acute calculus cholecystitis and normal CBD. Cholecystectomy 08/22/2024 LFTs elevated T bilirubin slightly downtrending MRCP showed a 5mm stone in distal CBD. ERCP successfully removed 5 mm stone. Plan: Will continue with Zosyn (08/21/2024?) and discontinue on discharge Pain management as needed Protonix daily Clear liquid diet, advance as tolerated General Surgery on board, recommend to follow-up outpatient in 1 to 2 weeks GI on board, recommend to monitor for any pancreatitis, bleeding, cholangitis risk status post ERCP and will send for H. pylori Follow-up H. pylori and biopsy results with GI in 2 to 4 weeks #Normocytic normochromic anemia?stable Patient came in with a hemoglobin of 11.7 This morning hemoglobin was 10.2 Most likely hemodilution No active signs of bleeding Plan: Will continue to monitor and transfuse hemoglobin less than 7 #Hypokalemia, resolved Disposition: Patient admitted for calculus cholecystitis s/p cholecystectomy and choledocholithiasis. Diet: Clear liquid diet GI prophylaxis: protonix DVT prophylaxis: heparin subcu Code: Full Patient's plan and care discussed with my attending, Dr. Raza Schreiber MD PGY-2
--- NOTE | 2024-08-26 16:00 | SUR.PHASEI ---
1600: Pt. AAOx4, vitals stable, breathing unlabored, pt. was able to relieve herself in the restroom/pass flatus and stated that she felt better afterwards, no complaint of nausea, no dressing in place, no active bleed noted, gave report to Rowan CHU prior to transfer to room 371. Pt. stated she will notify her family of transfer herself.
[2024-08-27] VITALS: BP 103/67; PULSE 82; RESP 18; TEMP 36.2; O2SAT 95
[2024-08-27] MEDS: MORPHINE SULF INJ 10 MG/ML VIAL 2 MG IVP ×2 (00:50→08:10)
[2024-08-27 04:00] VITALS: BP 110/61; PULSE 78; RESP 16; TEMP 36.7; O2SAT 98
[2024-08-27] MEDS: PIPER/TAZO 3.375 GM PREMIX 3.375 GM/50 ML BAG IV ×2 (06:03→13:34)
[2024-08-27 06:17] LABS: Basophils % (Auto) 0 % (0-2.5); Eosinophils % (Auto) 0 % (0-10); Hemoglobin 10.2 g/dL (12.0-16.0); Immature Granulocytes % (Auto) 0 % (0-0); Immature Granulocytes Auto 0.01 Thou/mm3 (0.00-0.00); Lymphocytes # (Auto) 0.9 Thou/mm3 (1.0-4.8); Lymphocytes % (Auto) 17 % (10-50); Mean Corpuscular HGB Conc 31.9 g/dl (31.0-37.0); Mean Corpuscular Hemoglobin 29.2 pg (25.0-35.0); Mean Corpuscular Volume 92 fL (80-100); Monocytes # (Auto) 0.5 Thou/mm3 (0.0-0.8); Monocytes % (Auto) 10 % (0-12); Neutrophils # (Auto) 3.9 Thou/mm3 (1.8-7.7); Neutrophils % (Auto) 72 % (37-80); Nucleated Red Blood Cell % 0 /100 WBC (0); Platelet Count 251 Thou/mm3 (140-440); RDW Standard Deviation 54.5 fL (36.4-46.3); Red Blood Count 3.49 Miln/mm3 (4.00-5.20); White Blood Count 5.3 Thou/mm3 (3.6-11.0)
[2024-08-27 06:34] LABS: Alanine Aminotransferase 273 U/L (10-49); Albumin, Serum 4.1 gm/dL (3.5-5.0); Albumin/Globulin Ratio 1.6 (1.2-2.2); Alkaline Phosphatase 228 U/L (46-116); Anion Gap 8 (7-16); Aspartate Amino Transferase 141 U/L (0-34); BUN/Creatinine Ratio 17 Ratio (12-20); Bilirubin,Total 0.9 mg/dL (0.3-1.2); Blood Urea Nitrogen 10 mg/dL (9-23); Calcium 8.8 mg/dL (8.3-10.6); Calcium (Corrected) 8.8 mg/dL (8.5-10.1); Carbon Dioxide 25.2 mMol/L (20.0-31.0); Chloride 108 mMol/L (98-107); Creatinine (Component) 0.6 mg/dL (0.6-1.3); Estimated Creatinine Clearance 130.2 mL/min (>60); Globulin 2.6 gm/dL (2.3-3.5); Glucose 129 mg/dL (74-106); Magnesium 2.2 mg/dL (1.6-2.6); Osmolality,Calculated 282 (275-295); Phosphorous 3.4 mg/dL (2.4-5.1); Potassium 4.1 mMol/L (3.4-5.1); Sodium 141 mMol/L (136-145); Total Protein 6.7 gm/dL (5.7-8.2); eGFR > 60 See Note
[2024-08-27 08:00] VITALS: BP 131/78; PULSE 69; RESP 18; TEMP 36.4; O2SAT 95
[2024-08-27] MEDS: PANTOPRAZOLE INJ 40 MG VIAL IVP (08:10)
[2024-08-27] MEDS: DOCUSATE SOD 100 MG CAPSULE PO (08:11)
--- NOTE | 2024-08-27 11:40 | PD.SURPROG ---
Documentation for date of: 08/27/24 Subjective Subjective Narrative: Pt is seen and examined. Feeling better. Underwent ERCP Exam Vital Signs Temp Pulse Resp BP Pulse Ox O2 Del Method O2 Flow Rate 97.5 F 69 18 131/78 H 95 Room Air 2 08/27/24 08:00 08/27/24 08:00 08/27/24 08:00 08/27/24 08:00 08/27/24 08:00 08/27/24 08:00 08/26/24 15:25 Constitutional Constitutional: no acute distress Routine Abdominal Exam Abdominal: Present soft and normoactive bowel sounds; Absent tenderness or distended Assessment & Plan Assessment Additional comments: S/p Laparoscopic cholecystectomy and ERCP Plan Discharge home. Procedures Procedures Laparoscopic cholecystectomy
[2024-08-27] MEDS: LACTULOSE SYRUP 20 GM/30 ML UDC PO (11:42)
[2024-08-27 11:56] VITALS: BMI 36.6
[2024-08-27 11:57] LABS: Lipase 33 U/L (12-53)
[2024-08-27 12:00] VITALS: BP 114/65; PULSE 84; RESP 18; TEMP 36.2; O2SAT 96
[2024-08-27] MEDS: HYDROcodone/APAP 5/325 TABLET 1 TAB PO (13:34)
--- NOTE | 2024-08-27 13:34 | PC.SS ---
SS follow up note; Pending GI clearance, Patient will discharge home once medically cleared.
--- NOTE | 2024-08-27 15:40 | PD.HHDS ---
Planned Discharge Date 08/27/24 DS: Providers Provider Date of admission: 08/24/24 09:44 Primary care physician: Physician No Primary/Family Admitting Provider: Felipe Sheth MD Attending Provider on Admission: Federico Person DO Consults: 08/21/24 22:46 Consult to General Surgery Routine Comment: Acute calculus cholecystitis Consulting Provider: Diana Harrell 08/25/24 08:21 Consult to Gastroenterology Routine Comment: Needs ERCP Consulting Provider: Isra Latham Attending Provider on DC: Federico Person DO Discharging Provider: Federico Person DO Diagnosis Problem List Completed Was Problem List Reviewed/Reconciled?: Yes Hospital Course - Hospitalist Hospital Course Hospital course: Patient is a 39-year-old female with no significant past medical history presented to [facility] to the ED on 08/21 with a chief complaint of epigastric pain. Patient was subsequently diagnosed and admitted for acute calculus cholecystitis. Patient had a laparoscopic cholecystectomy on 08/22 and tolerated the procedure well however due to increased liver enzymes to include uptrending T. bili, an MRCP was performed which did demonstrate a distal CBD stone. Gastroenterology, Dr. Art was consulted and performed an ERCP on 08/26 in which a 5 mm impacted stone was removed. Patient tolerated the procedures well there was no complications. On day of discharge, the patient was stable, afebrile and tolerated full regular diet without issue. Lipase was within normal limits the patient was subsequently discharged and instructed to return to the emergency department if symptoms worsened or persisted. Problem List: #Acute calculus cholecystitis s/p cholecystectomy, postop day #4 #Transaminitis?resolving #Hyperbilirubinemia #Choledocholithiasis-resolved status post ERCP #Normocytic normochromic anemia?stable Time Spent with Patient Time attestation: Total time spent providing and/or coordinating discharge services: Time spent: Greater than 30 minutes Discharge Results Labs Diagrams: 08/27/24 04:56 08/27/24 04:56 Labs: Short CBC 08/27/24 Range/Units 04:56 WBC 5.3 (3.6-11.0) Thou/mm3 Hgb 10.2 L (12.0-16.0) g/dL Hct 32.0 L (36.0-46.0) % Plt Count 251 (140-440) Thou/mm3 BMP 08/27/24 04:56 Sodium 141 Potassium 4.1 Chloride 108 H Carbon Dioxide 25.2 BUN 10 Creatinine 0.6 Glucose 129 H Calcium 8.8 Liver Function 08/27/24 Range/Units 04:56 Total Bilirubin 0.9 (0.3-1.2) mg/dL AST 141 H (0-34) U/L ALT 273 H (10-49) U/L Alkaline Phosphatase 228 H D (46-116) U/L Albumin 4.1 (3.5-5.0) gm/dL Exam Vital Signs Temp Pulse Resp BP Pulse Ox O2 Del Method O2 Flow Rate 97.5 F 69 18 131/78 H 95 Room Air 2 08/27/24 08:00 08/27/24 08:00 08/27/24 08:00 08/27/24 08:00 08/27/24 08:00 08/27/24 08:00 08/26/24 15:25 Discharge Plan Plan Patient Disposition: HOME (Self Care) Prescriptions/Referrals Referrals: Diana Harrell MD [Physician] - No Primary/Family,Physician [Primary Care Provider] - Isra Latham MD [Physician] - Mallory Schreiber MD [Resident] - Patient/Caregiver Discharge Instructions Other Discharge Activity Instructions:: Please follow up with your PCP within 1 week. If you do not have a PCP, please make an appointment with the [facility] to establish care at [phone] Schreiber. Please follow up with General Surgery, Dr. Harrell, in 1-2 weeks. Please follow up with Gasteroenterologisit, Dr. Art in 2-4 weeks. Please continue to maintain a low fat diet and drink lots of fluids. Please return to the ED if your symptoms recur or worsen. Education Materials: Preventing Surgical Site Infections, Sugammadex PostOp Instructions (Turkish) Print Language: Turkish Activity Restrictions/Additional Instructions: May shower. Avoid lifting, straining, pulling or pushing for 4 weeks. Follow up with Dr. Harrell in 2 weeks, please call [phone] for an appointment. Stand Alone Forms: Dianne Award Info., Patient Portal Info Letter Discharge Order Discharge Orders: Discharge (Routine); Ordered 08/27/24 Ordered By: Fdeerico Person Quality Discharge Quality Measures VTE prophylaxis
[2024-09-01 06:33] LABS: Helicobacter pylori Ag, Stool* NOT DETECTED (NOT DETECTED)
== END 2024-08-27 15:35 | disposition home or self-care (01) | DRG 263 ==
LOC: SERX 21:40 → S3SX 08-22 06:48 → SERHOLD 08-24 08:55
PROVIDERS: Internal Medicine Gastroenterology; Nurse Practitioner Family; Surgery; Admitting Provider Student in an Organized Health Care Education/Training Program; Emergency Provider Emergency Medicine; Visit Provider Student in an Organized Health Care Education/Training Program
PROC: 0FT44ZZ Resection of Gallbladder, Percutaneous Endoscopic Approach (ICD-10-PCS; CPT 47562; principal; 2024-08-22 13:00)
PROC: (CPT 43260; principal; 2024-08-26 14:00)
DX: K80.62 Calculus of gallbladder and bile duct with acute cholecystitis without obstruction (principal); D64.9 Anemia, unspecified; E66.9 Obesity, unspecified; Z68.36 Body mass index [BMI] 36.0-36.9, adult; I10 Essential (primary) hypertension; E87.6 Hypokalemia; K82.8 Other specified diseases of gallbladder
CPT/HCPCS: 36415; 74330; 76705; 80053; 80061; 81001; 81025; 82607; 82728; 83013; 83014; 83540; 83550; 83690; 83735; 84100; 85025; 85610; 87081; 87086; 87205; 87338; 96365; 96366; 96367; 96372; 96375; 99285; A4217; A4649; G0378; J0131; J0694; J1100; J1644; J1885; J2250; J2270; J2405; J2470; J2543; J2704; J3010; J3480; J3490; J7030; J7120; Q0162; S8037; 74181; A9270; J1920

== ENCOUNTER 2024-10-14 08:40 | Day surgery (SDC) | payer MEDICAID, SELFPAY ==
[2024-10-13 10:58] LABS: HCG Qualitative,Urine Negative
[2024-10-13 13:22] VITALS: BMI 34.7
[2024-10-14] VITALS (9 sets, daily range): BP systolic 121–156; BP diastolic 73–101; PULSE 69–113; RESP 16–25; TEMP 36.7–37.2; O2SAT 94–100; BMI 35.1
[2024-10-14] MEDS: RINGERS LACTATED 1000 ML 1,000 ML 125 ML IV (10:26)
[2024-10-14] MEDS: DiphenhydrAMINE INJ 50 MG/ML VIAL 25 MG IVP (10:28)
[2024-10-14] MEDS: MIDAZOLAM INJ 1 MG/ML VIAL 2 ML (ASD USE ONLY) 2 MG IVP (10:33)
[2024-10-14] MEDS: fentaNYL CIT INJ 50 mCg/ML AMP 2ML (ASD USE ONLY) IVP (10:33)
== END 2024-10-14 11:28 | disposition home or self-care (01) ==
PROVIDERS: PCP Nurse Practitioner Family; Referring Provider Internal Medicine Gastroenterology; Visit Provider Internal Medicine Gastroenterology
PROC: 0DBE8ZX Excision of Large Intestine, Via Natural or Artificial Opening Endoscopic, Diagnostic (ICD-10-PCS; CPT 45380; principal; 2024-10-14 09:45)
DX: K52.9 Noninfective gastroenteritis and colitis, unspecified (principal); K64.1 Second degree hemorrhoids; K57.31 Diverticulosis of large intestine without perforation or abscess with bleeding; K31.89 Other diseases of stomach and duodenum
CPT/HCPCS: 45380; 81025; J1200; J2250; J3010; J7120